=== PATIENT | male | born 1950 | race Caucasian/White ===

== ENCOUNTER 2017-01-15 15:36 | Inpatient (IN) | payer OTHER ==
[~2017-01-15] VITALS: Ht 165.1 cm; Wt 55.3 kg
[~2017-01-15 15:36] MED LIST: ASPI-1093 PO; DONE5TAB2 PO; FOLI1TAB19 PO; GLIP10TA3 PO; METF500T PO; THIA100T25 PO
--- NOTE | 2017-01-15 15:47 | NUR ---
66/M BIBA FROM SNF FOR EVALUATION OF ELEVATED BLOOD SUGAR. BLOOD SUGAR UPON ARRIVAL TO ER READS "HIGH". HX DM, ANEMIA, HTN, ALZHEIMERS.PATIENT PRESENTS TO ED WITH ALOC . NO N/V/D NOTED AT THIS TIME. ; SKIN IS PINK/WARM/DRY;LUNGS CLEAR BL; HR EVEN AND REGULAR.
[2017-01-15 15:52] VITALS: BP 148/68
[2017-01-15] MEDS ORDERED: NACL 0.9% 1,000 ML IV SCH ×2 (15:58→19:40)
[2017-01-15 16:18] LABS: BASOPHILS # (AUTO) 0.1 K/uL (0.00-0.22); BASOPHILS % (AUTO) 0.8 % (0.0-2.0); EOSINOPHILS # (AUTO) 0.1 K/uL (0-0.4); HEMATOCRIT 40.8 % (36-52); HEMOGLOBIN 13.2 g/dL (12.0-18.0); LYMPHOCYTES % (AUTO) 12.5 % (20.5-51.1); MEAN CORPUSCULAR HEMOGLOBIN 30 pg (27-31); MEAN CORPUSCULAR HGB CONC 32 g/dL (33-37); MEAN CORPUSCULAR VOLUME 93 fL (80-94); MONOCYTES # (AUTO) 0.6 K/uL (0.8-1.0); MONOCYTES % (AUTO) 7.2 % (1.7-9.3); NEUTROPHILS # (AUTO) 6.3 K/uL (1.8-7.7); NEUTROPHILS % (AUTO) 78.5 % (42.2-75.2); PLATELET COUNT (AUTO) 184 K/uL (140-450); RED BLOOD CELL COUNT(AUTO) 4.39 MIL/uL (4.20-6.10); WHITE BLOOD COUNT (AUTO) 8.1 K/uL (4.8-10.8)
[2017-01-15 16:34] LABS: INR 1.1 (0.8-1.2); PARTIAL THROMBOPLASTIN TIME 22.9 secs (22-35.6); PROTHROMBIN TIME 10.3 secs (10.8-13.4)
[2017-01-15 16:36] LABS: ALBUMIN 3.3 g/dL (3.4-5.0); ANION GAP 15.5 (8-16); CALCIUM 9.2 mg/dL (8.5-10.1); CARBON DIOXIDE 28.8 mmol/L (21-32); CREATININE 3.5 mg/dL (0.6-1.3); POTASSIUM 5.3 mmol/L (3.5-5.1); TOTAL BILIRUBIN 0.3 mg/dL (0.0-1.0); TOTAL PROTEIN, SERUM 7.4 g/dL (6.4-8.2)
--- NOTE | 2017-01-15 16:57 | NUR ---
PT'S OPEN EYES BUT NON VERBAL ,CAN MOVE BOTH HANDS
[2017-01-15 17:02] LABS: LACTIC ACID 2.1 mmol/L (0.4-2.0)
[2017-01-15 17:07] LABS: APPEARANCE,URINE CLEAR (CLEAR); BILIRUBIN,URINE NEGATIVE (NEGATIVE); BLOOD, URINE NEGATIVE (NEGATIVE); COLOR,URINE YELLOW (YELLOW); LEUKOCYTE ESTERASE ,URINE NEGATIVE (NEGATIVE); NITRITE, URINE NEGATIVE (NEGATIVE); PROTEIN,URINE 2+ (NEGATIVE); UGLUCOSE 3+ (NEGATIVE); UROBILINOGEN,URINE 0.2 EU/dL (0.2 - 1)
[2017-01-15] MEDS ORDERED: NACL 0.9% 1,000 ML IV ONE ×2 (17:10→18:00)
[2017-01-15] MEDS ORDERED: INSULIN HUMAN REGULAR 100 UNITS in NACL 0.9% 100 ML IV ONE (17:10)
[2017-01-15 17:11] LABS: RBC,URINE 0-3 /HPF (0-5); WBC,URINE 0-3 /HPF (0-5)
[2017-01-15 17:12] LABS: BLOOD GAS BASE EXCESS -1.6 mmol/L (-2.0-2.0); BLOOD GAS HCO3 24.5 mmol/L; BLOOD GAS PCO2 46.8 mmHg (20-50); BLOOD GAS PH 7.336 (7.35-7.45); BLOOD GAS PO2 147.9 mmHg
[2017-01-15 17:12] LABS: BACTERIA,URINE FEW /HPF (None Seen); HYALINE CASTS, URINE 0-10 /LPF (None Seen); SQUAMOUS EPITHELIAL CELL,UR 0-3 /LPF (0-3 (FEW)); URINE AMORPHOUS URATE 1+ /HPF (None Seen)
[2017-01-15 17:13] LABS: BLOOD GAS O2 SAT% 98.4 % (92.0-98.5)
[2017-01-15] MEDS ORDERED: MORPHINE SULFATE 2 MG/ML SYR IVP PRN (17:55)
[2017-01-15] MEDS ORDERED: ONDANSETRON 4 MG/2 ML VIAL IVP PRN (17:55)
[2017-01-15] MEDS ORDERED: ACETAMINOPHEN 325 MG TAB PO PRN (17:55)
[2017-01-15] MEDS ORDERED: DOCUSATE SODIUM 100 MG GELCAP PO PRN (17:55)
[2017-01-15] MEDS ORDERED: HYDROcodone/APAP 5/325 MG 1 TAB TAB PO PRN (17:55)
--- NOTE | 2017-01-15 17:58 | NUR ---
CALLED IRENE OLMOS ICU TO REPORT PT ICU 3 .WILL CALL BACK IN 5 MINS
[2017-01-15] MEDS ORDERED: INSULIN HUMAN REGULAR 100 UNITS in NACL 0.9% 100 ML IV SCH (18:00)
[2017-01-15] MEDS ORDERED: DEXT 5% / NACL 0.45% 1,000 ML IV PRN (18:00)
[2017-01-15] MEDS ORDERED: DEXTROSE 50% 50 ML SYR IVP PRN (18:00)
--- NOTE | 2017-01-15 18:25 | NUR ---
GAVE REPORT TO IRENE OLMOS
--- NOTE | 2017-01-15 18:26 | NUR ---
Patient will be admitted to care of [facility]. Admited to ICU. Will go to room 3. Belongings list completed. Report to IRENE OLMOS.
[2017-01-15 18:50] VITALS: BP 167/95
--- NOTE | 2017-01-15 18:50 | NUR ---
RECEIVE PATIENT FROM ER. VITAL SIGNS TAKEN. MRSA NARES SWAB IS SEND TO LAB. HOB ELEVATED. UPDATED OF PLAN OF CARE. WILL CONTINUE TO MONITOR.
--- NOTE | 2017-01-15 18:57 | NUR ---
INSULIN DRIP INCREASE TO 7 UNITS/HR PER DR ACEVEDO'S ORDER. INSERTED A NEW IV CATH ON RIGHT HAND USING GAUGE 20 NEEDLE WITH GOOD BLOOD RETURN. TEGADERM DRESSING IS THEN PLACED. TOLERATED THE PROCEDURE WELL.
[2017-01-15 19:13] LABS: CHOL/HDL RATIO 3.3 (1-4.5); MAGNESIUM 3.3 mg/dL (1.8-2.4); PHOSPHORUS 5.8 mg/dL (2.5-4.9)
--- NOTE | 2017-01-15 19:15 | NUR ---
REPORT GIVEN TO INCOMING HVAC SERVICE TECHNICIAN RN, IRENE LEE.
[2017-01-15 19:22] LABS: BILIRUBIN,DIRECT 0.1 mg/dL (0.0-0.3)
--- NOTE | 2017-01-15 19:25 | NUR ---
RECEIVED REPORT FROM AMARILIS/RN, PATIENT ADMITTED FROM ER AT 1850 FOR DKA. PATIENT'S DAUGHTER AT BEDSIDE AND TALKING WITH DR. MILLER BUT LEFT RIGHT AWAY. PATIENT IS AWAKE, ORIENTED TO NAME ONLY, ON INSULIN DRIP AT 7 UNITS/HR INFUSING TO LEFT HAND G#20, SALINE LOCK ON RIGHT HAND G#20 , HAS MEADE CATH AND DRAINING CLEAR YELLOW URINE, SKIN IS INTACT, MOVES ALL EXTREMITIES, ON NPO AT THIS TIME, DENIES PAIN.
[2017-01-15] MEDS: BLOOD GLUCOSE MONITORING 1 DEV DEV FS SCH ×5 (19:30→23:00)
[2017-01-15 19:43] LABS: FREE T4 (FREE THYROXINE) 0.94 ng/dL (0.76-1.46); THYROID STIMULATING HORMONE 1.96 uIU/mL (0.34-3.76)
[2017-01-15 20:00] VITALS: BP 155/95
[2017-01-15 20:15] LABS: ANION GAP 12.5 (8-16); CALCIUM 8.3 mg/dL (8.5-10.1); CARBON DIOXIDE 29.8 mmol/L (21-32); CREATININE 3.1 mg/dL (0.6-1.3); POTASSIUM 4.3 mmol/L (3.5-5.1)
[2017-01-15] MEDS ORDERED: MAG SULF 2000 MG/WATER PREMIX 50 ML IV SCH (20:15)
[2017-01-15 20:17] LABS: MAGNESIUM 3.1 mg/dL (1.8-2.4); PHOSPHORUS 4.6 mg/dL (2.5-4.9)
--- NOTE | 2017-01-15 20:30 | NUR ---
DR MILLER NOTIFIED LAB RESULT SEE CRITICAL LAB RECORD ,ORDER CHANGE IV ,SEE ORDER
[2017-01-15] MEDS: NACL 0.45% 1,000 ML IV SCH (20:41)
[2017-01-15] MEDS ORDERED: cefTRIAXone 1,000 MG VIAL ONE (20:44)
--- NOTE | 2017-01-15 20:44 | NUR ---
SPOKE WITH DR. MILLER REGARDING MG RIDER, INFORMED MD THAT PATIENT'S CURRENT MG LEVEL IS 3.1, PER MD TO HOLD MG RIDER ORDERED.
[2017-01-15 22:00] VITALS: BP 154/94
--- NOTE | 2017-01-15 22:00 | NUR ---
CONTINUE TO MONITOR BLOOD SUGAR, PATIENT IS RESTING, DENIES PAIN.
[2017-01-16] VITALS (11 sets, daily range): BP systolic 121–178; BP diastolic 63–132
--- NOTE | 2017-01-16 | NUR ---
AWAKE, DENIES PAIN, ACCUCHECK Q1H CONTINUE, REGULAR INSULIN DRIP NOW AT 1 UNIT/HR.
[2017-01-16] MEDS: BLOOD GLUCOSE MONITORING 1 DEV DEV FS SCH ×10 (00:06→21:14)
[2017-01-16 00:28] LABS: ANION GAP 12.2 (8-16); CALCIUM 8.2 mg/dL (8.5-10.1); CARBON DIOXIDE 28.5 mmol/L (21-32); CREATININE 2.6 mg/dL (0.6-1.3); MAGNESIUM 2.9 mg/dL (1.8-2.4); PHOSPHORUS 4.2 mg/dL (2.5-4.9); POTASSIUM 3.7 mmol/L (3.5-5.1)
[2017-01-16] MEDS: NACL 0.45% 1,000 ML IV SCH ×5 (00:30→20:36)
[2017-01-16] MEDS: DEXT 5% / NACL 0.45% 1,000 ML IV PRN ×2 (02:00→06:56)
--- NOTE | 2017-01-16 02:00 | NUR ---
PATIENT SLEEPING, EASILY AROUSED, REGULAR INSULIN DRIP INCREASED TO TO 2 UNITS, BS 217.
--- NOTE | 2017-01-16 04:00 | NUR ---
TURNED AND REPOSITIONED. DENIES PAIN, KEPT COMFORTABLE.
[2017-01-16 05:47] LABS: BASOPHILS # (AUTO) 0.2 K/uL (0.00-0.22); BASOPHILS % (AUTO) 1.9 % (0.0-2.0); EOSINOPHILS # (AUTO) 0.2 K/uL (0-0.4); EOSINOPHILS % (AUTO) 2.6 % (0.0-4.0); HEMATOCRIT 32.8 % (36-52); HEMOGLOBIN 10.4 g/dL (12.0-18.0); LYMPHOCYTES # (AUTO) 1.8 K/uL (2.0-11.5); LYMPHOCYTES % (AUTO) 19.4 % (20.5-51.1); MEAN CORPUSCULAR HEMOGLOBIN 29 pg (27-31); MEAN CORPUSCULAR HGB CONC 32 g/dL (33-37); MEAN CORPUSCULAR VOLUME 92 fL (80-94); MONOCYTES # (AUTO) 0.8 K/uL (0.8-1.0); MONOCYTES % (AUTO) 8.2 % (1.7-9.3); NEUTROPHILS # (AUTO) 6.3 K/uL (1.8-7.7); NEUTROPHILS % (AUTO) 67.9 % (42.2-75.2); PLATELET COUNT (AUTO) 146 K/uL (140-450); RED BLOOD CELL COUNT(AUTO) 3.57 MIL/uL (4.20-6.10); RED CELL DISTRIBUTION WIDTH 15.8 % (11.6-13.7); WHITE BLOOD COUNT (AUTO) 9.3 K/uL (4.8-10.8)
--- NOTE | 2017-01-16 06:00 | NUR ---
AM CARE PROVIDED, PATIENT HAD ANOTHER STOOL, WASHED AND CLEANED. BLOOD SUGAR CHECK CONTINUE Q1H, REGULAR INSULIN DRIP AT 1 UNIT/HR AT THIS TIME. HYDRALAZINE 10 MG IVP GIVEN FOR BP 178/90, DENIES PAIN.
[2017-01-16] MEDS: hydrALAZINE 20 MG/ML VIAL IVP PRN ×7 (06:10→17:15)
[2017-01-16 06:29] LABS: ANION GAP 9.7 (8-16); CALCIUM 7.8 mg/dL (8.5-10.1); CARBON DIOXIDE 28.1 mmol/L (21-32); POTASSIUM 3.8 mmol/L (3.5-5.1)
[2017-01-16 06:30] LABS: CREATININE 2.3 mg/dL (0.6-1.3)
[2017-01-16 06:32] LABS: MAGNESIUM 2.7 mg/dL (1.8-2.4); PHOSPHORUS 4.2 mg/dL (2.5-4.9)
--- NOTE | 2017-01-16 07:04 | NUR ---
DR. MOON CALLED AND INFORMED ABOUT PATIENT'S ELEVATED SODIUM LEVELS AND BUN, UPDATE PHYSICIAN THAT IVF IS D5 1/2 NS AT 250 ML/HR, REGULAR INSULIN DRIP AT 1 UNIT/HR, 0700 BS 194.
[2017-01-16 07:07] LABS: BLOOD GAS BASE EXCESS -2.2 mmol/L (-2.0-2.0); BLOOD GAS HCO3 22.4 mmol/L; BLOOD GAS PH 7.389 (7.35-7.45); BLOOD GAS PO2 108.3 mmHg
[2017-01-16 07:08] LABS: BLOOD GAS O2 SAT% 97.4 % (92.0-98.5)
[2017-01-16] MEDS ORDERED: DEXT 5% / NACL 0.45% 1,000 ML IV SCH (07:10)
--- NOTE | 2017-01-16 07:58 | NUR ---
PATIENT HAS BEEN SCREENED AND CATEGORIZED HIGH NUTRITION RISK. PATIENT WILL BE SEEN WITHIN 1-2 DAYS OF ADMISSION. 01/16/17-01/17/[address]
--- NOTE | 2017-01-16 08:00 | NUR ---
BLOOD GLUCOSE 219 DR. SCHULTE AWARE REG INSULIN COVER GIVEN ORDERED. INSULIN IVDRIP AT 1UNIT/HR CONTINUE FOR ONE MORE HOUR.
[2017-01-16 08:18] LABS: ANION GAP 11.2 (8-16); CALCIUM 7.8 mg/dL (8.5-10.1); CARBON DIOXIDE 26.3 mmol/L (21-32); CREATININE 2.1 mg/dL (0.6-1.3); POTASSIUM 3.5 mmol/L (3.5-5.1)
[2017-01-16 08:21] LABS: MAGNESIUM 2.4 mg/dL (1.8-2.4); PHOSPHORUS 3.7 mg/dL (2.5-4.9)
[2017-01-16] MEDS: INSULIN LISPRO SLIDING SCALE 100 UNITS/ML VIAL SUBQ PRN ×2 (08:24→21:15)
[2017-01-16] MEDS: DONEPEZIL 10 MG TAB PO SCH (08:25)
[2017-01-16] MEDS: ECOTRIN 81 MG TABEC PO SCH (08:25)
[2017-01-16] MEDS: THIAMINE 100 MG TAB PO SCH (08:26)
[2017-01-16] MEDS: FOLIC ACID 1 MG TAB PO SCH (08:26)
[2017-01-16] MEDS: PANTOPRAZOLE 40 MG INJ VIAL IVP SCH (09:00)
[2017-01-16] MEDS ORDERED: PANTOPRAZOLE 40 MG TABEC PO SCH (09:00)
--- NOTE | 2017-01-16 09:10 | NUR ---
INSULIN IV DRIP D/C ORDER.
--- NOTE | 2017-01-16 10:00 | NUR ---
blood glucose 131 NO INSULIN NEEDED.
[2017-01-16] MEDS ORDERED: BLOOD GLUCOSE MONITORING 1 DEV DEV FS SCH (12:00)
--- NOTE | 2017-01-16 12:00 | NUR ---
BL GLUCOSE ACC CHECK 75. CRANBERY JUICE AND APPLE SOURCE GIVEN.
[2017-01-16] MEDS ORDERED: ARTIFICIAL TEARS OPHTH OINT 3.5 GM TUBE OP PRN (12:45)
[2017-01-16] MEDS: MULTIVITAMIN/MINERALS 1 TAB PO SCH (12:45)
[2017-01-16] MEDS ORDERED: ATORVASTATIN 80 MG TAB PO SCH (12:54)
[2017-01-16] MEDS ORDERED: NIFEdipine 60 MG TABER PO SCH ×2 (12:56→12:59)
[2017-01-16] MEDS ORDERED: CLOPIDOGREL 75 MG TAB PO SCH (12:58)
[2017-01-16 13:20] LABS: ANION GAP 10.9 (8-16); CALCIUM 7.7 mg/dL (8.5-10.1); CARBON DIOXIDE 25.6 mmol/L (21-32); CREATININE 1.9 mg/dL (0.6-1.3); POTASSIUM 3.5 mmol/L (3.5-5.1)
--- NOTE | 2017-01-16 14:20 | NUR ---
visit by family at bedside.
--- NOTE | 2017-01-16 14:22 | NUR ---
01/16/17 RD INITIAL ASSESSMENT COMPLETED PLEASE REFER TO NUTRITION ASSESSMENT UNDER CARE ACTIVITY FOR ESTIMATED NUTRITIONAL NEEDS. RD RECOMMENDATIONS: 1. WHEN MEDICALLY APPROPRIATE CONSIDER ADVANCE DIET TOLERATED TO [facility] 60 WITH TEXTURE MODIFICATION NEEDED. 2. MONITOR PROTEIN CONSUMPTION D/T HX OF CKD. 3. RD WILL F/U 3-5 DAYS; MODERATE RISK. GERARD VERDIN, RD
--- NOTE | 2017-01-16 16:00 | NUR ---
BL GLUCOSE 194 INSULIN COVERAGE GIVEN ORDERED.
--- NOTE | 2017-01-16 16:30 | NUR ---
CALL TELE GIVE REPORT TO JAYSHREE BNOILLA.
--- NOTE | 2017-01-16 16:55 | NUR ---
transfer to 110 b in bed CONDITION STABLE DURING TRANSFER REPORT GIVE TO JAYSHREE AT BEDSIDE.
--- NOTE | 2017-01-16 17:00 | NUR ---
RECEIVED PATIENT FROM ICU FOR CONTINUITY OF CARE. PATIENT AWAKE , A/OX2 SWEDISH SPEAKING , NO S/S OF RESP DISTRESS NOTED . DENIES ANY PAIN . IV SITE LEFT ARM G 20 INTACT AND PATENT. IVF INFUSING WELL. F/C DRAIN CLEAR YELLOW URINE. PLAN OF CARE DISCUSSED WITH THE PATIENT VITALS STABLE WILL CONTINUE TO MONITOR.
[2017-01-16] MEDS: POLYVINYL ALCOHOL 1.4% OP 15 ML SOL OP SCH ×2 (17:25→20:39)
--- NOTE | 2017-01-16 19:20 | NUR ---
RECEIVED REPORT FROM IRENE POLO AT BEDSIDE. INITIAL ASSESSMENT COMPLETED. PT AAOX3 FORGETFUL AT TIMES. PT'S SKIN IS INTACT. PT HAS IV TO LEFT ARM G 20; ASYMPTOMATIC, PATENT AND INTACT INFUSING FLUIDS WELL. PT ON ROOM AIR. ORIENTED PT TO ROOM AND SURROUNDINGS AND USE OF CALL LIGHT. EXPLAINED PLAN OF CARE TO PT. SAFETY/FALL RISK MEASURES IN PLACE, BED ALARM ON. WILL CONTINUE TO MONITOR PT. Addendum: 01/16/17 at 2006 by Kady Sheridan RN PT HAS A MEADE CATHETER IN PLACE.
--- NOTE | 2017-01-16 19:45 | NUR ---
PROFESSOR OF GENETICS AT BEDSIDE, WILL CONTINUE TO MONITOR PT.
[2017-01-16] MEDS ORDERED: cefTRIAXone 1,000 MG VIAL ONE (20:36)
[2017-01-16] MEDS: levETIRAcetam 500 MG TAB PO SCH (20:36)
[2017-01-16] MEDS: ASCORBIC ACID 500 MG TAB PO SCH (20:36)
[2017-01-16] MEDS: DOCUSATE SODIUM 100 MG GELCAP PO SCH (20:36)
--- NOTE | 2017-01-16 20:40 | NUR ---
ARTIFICIAL TEARS NOT GIVEN; MEDICATION NOT AVAILABLE.
[2017-01-16] MEDS ORDERED: SIMVASTATIN 20 MG TAB PO SCH (21:00)
[2017-01-16] MEDS ORDERED: INSULIN DETEMIR 100 UNITS/ML 10 ML VIAL SUBQ SCH (21:00)
--- NOTE | 2017-01-16 21:19 | NUR ---
PT TOLERATED 2100 MEDS WELL. [place] CD REACTOR OPERATOR HEAD AT BEDSIDE VISITING. WILL CONTINUE TO MONITOR PT.
--- NOTE | 2017-01-16 23:05 | NUR ---
PT TRYING TO GET OUT OF BED, CONFUSED AT TIMES. PT BACK IN BED. BED ALARM ON, WILL CONTINUE TO MONITOR PT.
[2017-01-17] VITALS: BP 134/81
--- NOTE | 2017-01-17 01:20 | NUR ---
PT AWAKE, TRYING TO REMOVE IV. PT BACK IN BED, BED ALARM ON. WILL CONTINUE TO MONITOR PT.
--- NOTE | 2017-01-17 02:55 | NUR ---
PT AWAKE, PT TRYING TO REMOVE IV AND GET OUT OF BED. HELPED PT BACK TO BED. BED ALARM ON. WILL CONTINUE TO MONITOR PT.
[2017-01-17 04:00] VITALS: BP 123/72
--- NOTE | 2017-01-17 04:55 | NUR ---
PT SLEEPING AT THIS TIME, NO SIGNS OF DISTRESS NOTED. BED ALARM ON.
--- NOTE | 2017-01-17 06:10 | NUR ---
CHECKED PT'S BLOOD SUGAR IS 57. PT ASYMPTOMATIC, TALKING. ORANGE JUICE GIVEN AND WILL GIVE D50 ORDERED.
[2017-01-17] MEDS: NACL 0.45% 1,000 ML IV SCH ×2 (06:15→18:20)
--- NOTE | 2017-01-17 06:33 | NUR ---
RECHECKED PT'S BLOOD SUGAR AND IT IS NOW 152. PT STABLE, WILL CONTINUE TO MONITOR PT.
[2017-01-17] MEDS: BLOOD GLUCOSE MONITORING 1 DEV DEV FS SCH ×4 (06:34→21:06)
[2017-01-17 06:52] LABS: BASOPHILS % (AUTO) 0.2 % (0.0-2.0); EOSINOPHILS # (AUTO) 0.1 K/uL (0-0.4); EOSINOPHILS % (AUTO) 0.9 % (0.0-4.0); HEMATOCRIT 29.8 % (36-52); HEMOGLOBIN 9.6 g/dL (12.0-18.0); LYMPHOCYTES # (AUTO) 1.5 K/uL (2.0-11.5); LYMPHOCYTES % (AUTO) 11.7 % (20.5-51.1); MEAN CORPUSCULAR HEMOGLOBIN 29 pg (27-31); MEAN CORPUSCULAR HGB CONC 32 g/dL (33-37); MEAN CORPUSCULAR VOLUME 91 fL (80-94); MONOCYTES # (AUTO) 0.7 K/uL (0.8-1.0); MONOCYTES % (AUTO) 5.5 % (1.7-9.3); NEUTROPHILS # (AUTO) 10.6 K/uL (1.8-7.7); NEUTROPHILS % (AUTO) 81.7 % (42.2-75.2); PLATELET COUNT (AUTO) 135 K/uL (140-450); RED BLOOD CELL COUNT(AUTO) 3.27 MIL/uL (4.20-6.10); RED CELL DISTRIBUTION WIDTH 15.7 % (11.6-13.7); WHITE BLOOD COUNT (AUTO) 12.9 K/uL (4.8-10.8)
[2017-01-17 07:13] LABS: ANION GAP 9.8 (8-16); CALCIUM 7.5 mg/dL (8.5-10.1); CARBON DIOXIDE 26.3 mmol/L (21-32); CREATININE 1.6 mg/dL (0.6-1.3); POTASSIUM 3.1 mmol/L (3.5-5.1)
--- NOTE | 2017-01-17 07:20 | NUR ---
ENDORSED PLAN OF CARE TO IRENE CONTRERAS/FRENCH FOR CONTINUITY OF CARE. PT IN STABLE CONDITION.
--- NOTE | 2017-01-17 07:30 | NUR ---
RECEIVED PT RESTING COMFORTABLY IN BED, AAOX1, REORIENTED PT TO TIME/DATE AND PLACE; RESPIRATIONS EVEN AND UNLABORED ON ROOM AIR; NO C/O DISTRESS, SOB OR CP AT THIS TIME. IVF INFUSING WELL TO LEFT HAND, SITE ASYMPTOMATIC. REPOSITIONING PER PROTOCOL. ROUTINE/PLAN OF CARE DISCUSSED AND REVIEWED, WILL REINFORCE TEACHING THROUGHOUT SHIFT. SAFETY PRECAUTIONS OBSERVED AND MAINTAINED. WILL CONTINUE TO MONITOR PT.
[2017-01-17 08:00] VITALS: BP 101/54
[2017-01-17 08:22] LABS: HEPATITIS A ANTIBODY IGM Negative (Negative); HEPATITIS B CORE AB TOTAL Negative (Negative); HEPATITIS B CORE, IGM Negative (Negative); HEPATITIS B SURFACE AB Non Reactive (.); HEPATITIS B SURFACE ANTIGEN Negative (Negative); HEPATITIS C VIRUS ANTIBODY 0.1 s/co ratio (0.0-0.9)
[2017-01-17] MEDS ORDERED: ATORVASTATIN 80 MG TAB PO SCH (09:00)
[2017-01-17] MEDS: NIFEdipine 60 MG TABER PO SCH (09:00)
--- NOTE | 2017-01-17 09:17 | NUR ---
SS NOTE: PER IRENE KEBEDE FROM [facility], PT DOES NOT MEET CRITERIA FOR HOSPICE AT THIS TIME SINCE HIS CONDITION HAS IMPROVED.
[2017-01-17] MEDS: THIAMINE 100 MG TAB PO SCH (09:54)
[2017-01-17] MEDS: MULTIVITAMIN/MINERALS 1 TAB PO SCH (09:54)
[2017-01-17] MEDS: ASCORBIC ACID 500 MG TAB PO SCH ×2 (09:54→21:07)
[2017-01-17] MEDS: levETIRAcetam 500 MG TAB PO SCH ×2 (09:54→21:07)
[2017-01-17] MEDS: DOCUSATE SODIUM 100 MG GELCAP PO SCH ×2 (09:54→21:07)
[2017-01-17] MEDS: DONEPEZIL 10 MG TAB PO SCH (09:54)
[2017-01-17] MEDS: ECOTRIN 81 MG TABEC PO SCH (09:55)
[2017-01-17] MEDS: CLOPIDOGREL 75 MG TAB PO SCH (09:55)
[2017-01-17] MEDS: FOLIC ACID 1 MG TAB PO SCH (09:55)
[2017-01-17] MEDS: PANTOPRAZOLE 40 MG INJ VIAL IVP SCH (09:56)
[2017-01-17] MEDS: POLYVINYL ALCOHOL 1.4% OP 15 ML SOL OP SCH ×4 (09:56→21:06)
[2017-01-17] MEDS: INSULIN DETEMIR 100 UNITS/ML 10 ML VIAL SUBQ SCH (10:00)
[2017-01-17] MEDS ORDERED: POTASSIUM CHLORIDE 40 MEQ, LIDOCAINE 1% 25 MG in NACL 0.9% 250 ML IV SCH (10:00)
--- NOTE | 2017-01-17 10:20 | NUR ---
VS NOTED, NIFEDIPINE HELD FOR LOW BP 101/54, NOTIFIED MD; ADMINISTERED REMAINING ROUTINE MEDS ORDERED, PT TOLERATED WELL. ASSISTED WITH AM CARE. WILL CONTINUE TO MONITOR PT.
[2017-01-17] MEDS: INSULIN LISPRO SLIDING SCALE 100 UNITS/ML VIAL SUBQ PRN (11:32)
[2017-01-17 12:00] VITALS: BP 129/72
[2017-01-17 15:55] LABS: HEPATITIS A ANTIBODY TOTAL Positive (Negative)
[2017-01-17 16:00] VITALS: BP 93/52
--- NOTE | 2017-01-17 16:45 | NUR ---
SWALLOW EVAL DONE AT BEDSIDE. CONDITION STABLE.
--- NOTE | 2017-01-17 16:51 | NUR ---
* ST NOTE * Bedside Dysphagia and Oral Mechanism exams completed at pt's bedside with pt's sister and nursing present. Pt consenting to evaluation with pt's sister present. See evaluation report for further details. Pt tolerating 2/2 alternating PO trials of regular solid saltine crackers w/out s/s of aspiration but exhibiting minimal to occasional residue in oral cavity after PO intake of consistency. Pt also tolerating 6/7 successive sips of thin liquid apple juice via a straw w/out s/s of aspiration, but coughing on last trial of consistency. Pt presenting as impulsive, sipping successive sips of thin liquids via a straw, thus coughing on consistency after last trial when not abiding by aspiration precautions. Because pt is impulsive and because pt exhibiting minimal residue in oral cavity after PO intake of solids, it is recommended pt's PO diet consistency be modified to Mechanical soft-ground textures with finely chopped vegetables with thin liquids, requiring close supervision by staff/caregivers during PO intake to assure strict aspiration precautions are in place secondary to pt's impulsivity when self-feeding. Pt, caregiver/sister and caregiver/Nursing education completed regarding results of evaluation; benefits of abiding by aspiration precautions and recommended PO diet consistency; and prognosis for improvement; with pt, caregiver/sister and caregiver/nursing agreeable with and verbalizing understanding of clinician's recommendations. Recommend: - PO diet consistency of Mechanical soft-ground textures with finely chopped vegetables with thin liquids for all meals - Close supervision during PO intake to assure strict aspiration precautions are in place - Pt requires total assistance with feeding No further ST follow up recommended at this time. G8996 CK G8997 CJ G8998 CJ NOMS Level 3 Time In/Out: 16:30 - 17:00
--- NOTE | 2017-01-17 19:25 | NUR ---
CONDITION STABLE, ENDORSED PLAN OF CARE TO CURED MEATS SUPERVISOR.
--- NOTE | 2017-01-17 19:30 | NUR ---
RECEIVED PT IN STABLE CONDITION FORM AM NURSE. AWAKE BUT CONFUSED. JUST PULLED OUT IV ACCESS ON THE LT HAND. BUT NEW IV STARTED BY AM NURSE ON THE LT FA #22. IVF INFUSING WELL .TRYING TO GET OUT OF BED, RESTLESS . HAD BM , CLEANED AND KEPT DRY. REPOSITION FOR COMFORT. ON TELE MONITOR. WITH MEADE CATHETER TO GRAVITY. BEDREST. FREQUENT ROUNDS NEEDED . SIDE RAILS UPX2. CALL LIGHT PLACED WITHIN EASY REACH. WILL CONTINUE TO MONITOR.
[2017-01-17 20:00] VITALS: BP 111/60
--- NOTE | 2017-01-17 21:06 | NUR ---
BLOOD SUGAR WAS CHECKED RESULT 136. PROVIDED SOME SNACK, APPLE SAUCE WITH PO MEDS. TOLERATED WELL. WILL CONTINUE TO MONITOR.
--- NOTE | 2017-01-17 22:30 | NUR ---
SLEEPING WELL. NO S/S OF ANY DISCOMFORT NOR DISTRESS NOTED.
[2017-01-18 00:10] VITALS: BP 128/68
--- NOTE | 2017-01-18 01:40 | NUR ---
HR ON MONITOR SUDDEN LOW 46, BUT BACK UP QUICKLY. STILL CHECKED ON PT. AWAKE, NO DISTRESS NOTED. VITAL SIGNS TAKEN T-99.1,BP-127/54,HR-63,R-18, O2 SAT ON ROOM AIR 98%. WILL CONTINUE TO MONITOR.
[2017-01-18 01:45] LABS: AMPHETAMINE, URINE NEG. ng/ml (NEG <=1000); BARBITURATE, URINE NEG. ng/ml (NEG <=200); BENZODIAZEPINE, URINE NEG. ng/mL (NEG <=200); CANNABINOID, URINE NEG. ng/mL (NEG <=50); COCAINE, URINE NEG. ng/mL (NEG <=300); OPIATE, URINE NEG. ng/mL (NEG <=2000); PHENCYCLIDINE SCREEN,URINE NEG. ng/mL (NEG <=25)
[2017-01-18] MEDS: NACL 0.45% 1,000 ML IV SCH ×3 (02:11→15:51)
--- NOTE | 2017-01-18 02:30 | NUR ---
SLEEPING WELL AT THIS TIME. NO S/S OF ANY DISCOMFORT NOR DISTRESS NOTED.
[2017-01-18 04:00] VITALS: BP 124/65
[2017-01-18] MEDS: BLOOD GLUCOSE MONITORING 1 DEV DEV FS SCH ×4 (06:20→21:05)
--- NOTE | 2017-01-18 06:20 | NUR ---
BLOOD SUGAR WAS CHECKED RESULT 76. GAVE APPLE SAUCE .TOLERATED WELL
[2017-01-18 06:40] LABS: BASOPHILS # (AUTO) 0.1 K/uL (0.00-0.22); BASOPHILS % (AUTO) 1.5 % (0.0-2.0); EOSINOPHILS # (AUTO) 0.2 K/uL (0-0.4); EOSINOPHILS % (AUTO) 3.7 % (0.0-4.0); HEMATOCRIT 26.7 % (36-52); HEMOGLOBIN 8.8 g/dL (12.0-18.0); LYMPHOCYTES # (AUTO) 1.8 K/uL (2.0-11.5); LYMPHOCYTES % (AUTO) 26.1 % (20.5-51.1); MEAN CORPUSCULAR HEMOGLOBIN 30 pg (27-31); MEAN CORPUSCULAR HGB CONC 33 g/dL (33-37); MEAN CORPUSCULAR VOLUME 91 fL (80-94); MONOCYTES # (AUTO) 0.6 K/uL (0.8-1.0); MONOCYTES % (AUTO) 9.2 % (1.7-9.3); NEUTROPHILS # (AUTO) 4.1 K/uL (1.8-7.7); NEUTROPHILS % (AUTO) 59.5 % (42.2-75.2); PLATELET COUNT (AUTO) 101 K/uL (140-450); RED BLOOD CELL COUNT(AUTO) 2.95 MIL/uL (4.20-6.10); RED CELL DISTRIBUTION WIDTH 15.8 % (11.6-13.7); WHITE BLOOD COUNT (AUTO) 6.8 K/uL (4.8-10.8)
[2017-01-18 07:01] LABS: ANION GAP 10.4 (8-16); CALCIUM 7.2 mg/dL (8.5-10.1); CARBON DIOXIDE 23.2 mmol/L (21-32); CREATININE 1.5 mg/dL (0.6-1.3); MAGNESIUM 1.8 mg/dL (1.8-2.4); PHOSPHORUS 3.2 mg/dL (2.5-4.9); POTASSIUM 3.6 mmol/L (3.5-5.1)
--- NOTE | 2017-01-18 07:10 | NUR ---
ENDORSED PT IN STABLE CONDITION TO AM NURSE.
[2017-01-18] MEDS ORDERED: FUROSEMIDE 40 MG/4 ML VIAL IVP SCH (07:27)
[2017-01-18] MEDS ORDERED: FUROSEMIDE 100 MG/10 ML VIAL IV SCH (07:27)
--- NOTE | 2017-01-18 07:30 | NUR ---
RECEIVED PT RESTING COMFORTABLY IN BED, AAOX1, REORIENTED PT TO TIME/DATE AND PLACE; RESPIRATIONS EVEN AND UNLABORED ON ROOM AIR; NO C/O DISTRESS, SOB OR CP AT THIS TIME. IVF INFUSING WELL TO LEFT FOREARM, SITE ASYMPTOMATIC. MEADE CATH PATENT, DRAINING BY GRAVITY, CLEAR YELLOW URINE NOTED. REPOSITIONING PER PROTOCOL. ROUTINE/PLAN OF CARE DISCUSSED AND REVIEWED, WILL REINFORCE TEACHING THROUGHOUT SHIFT. SAFETY PRECAUTIONS OBSERVED AND MAINTAINED. WILL CONTINUE TO MONITOR PT.
[2017-01-18 08:00] VITALS: BP 135/64
[2017-01-18] MEDS: CLOPIDOGREL 75 MG TAB PO SCH (09:00)
[2017-01-18] MEDS: DOCUSATE SODIUM 100 MG GELCAP PO SCH ×2 (09:01→21:30)
[2017-01-18] MEDS: FOLIC ACID 1 MG TAB PO SCH (09:02)
[2017-01-18] MEDS: THIAMINE 100 MG TAB PO SCH (09:02)
[2017-01-18] MEDS: MULTIVITAMIN/MINERALS 1 TAB PO SCH (09:02)
[2017-01-18] MEDS: ASCORBIC ACID 500 MG TAB PO SCH ×2 (09:03→21:31)
[2017-01-18] MEDS: DONEPEZIL 10 MG TAB PO SCH (09:04)
[2017-01-18] MEDS: ECOTRIN 81 MG TABEC PO SCH (09:04)
[2017-01-18] MEDS: levETIRAcetam 500 MG TAB PO SCH ×2 (09:05→21:30)
[2017-01-18] MEDS: NIFEdipine 60 MG TABER PO SCH (09:05)
[2017-01-18] MEDS: POLYVINYL ALCOHOL 1.4% OP 15 ML SOL OP SCH ×4 (09:07→21:29)
--- NOTE | 2017-01-18 09:10 | NUR ---
VSS, HEPARIN AND PLAVIX HELD, PLT LOW 101; ADMINISTERED REMAINING ROUTINE MEDS ORDERED, PT TOLERATED WELL. ASSISTED WITH AM CARE. WILL CONTINUE TO MONITOR PT.
[2017-01-18] MEDS: INSULIN DETEMIR 100 UNITS/ML 10 ML VIAL SUBQ SCH (09:23)
--- NOTE | 2017-01-18 11:00 | NUR ---
Social Service Note: I faxed patient's clinical information to [facility] (SNF) .
--- NOTE | 2017-01-18 11:08 | NUR ---
Social Service Note: Per Magdaleno from [facility] (SNF) , they do not have any Power of Icer Hand for Healthcare documents in patient's file, or advance directives. He stated patient's niece Emma Morfin is patient's healthcare decision maker and patient's caregiver is Robin Dowd.
[2017-01-18 12:00] VITALS: BP 119/54
[2017-01-18] MEDS: INSULIN LISPRO SLIDING SCALE 100 UNITS/ML VIAL SUBQ PRN ×2 (12:11→21:08)
--- NOTE | 2017-01-18 12:49 | NUR ---
SPOKE WITH MABLE FROM [facility]. THE AUTH FOR PREMIER ZUÑIGAPRASANTH IS [id number]. CHRIST BONILLASUPERVISORY CIVIL ENGINEER NURSE AWARE.
--- NOTE | 2017-01-18 13:56 | NUR ---
Social Service Note: Jaswant Anaya from [facility] (SNF) , patient may return to room 106B upon discharge, accepting physician , Trouble Clerk Karena guevara
--- NOTE | 2017-01-18 14:00 | NUR ---
PT RESTING COMFORTABLY. CONDITION REMAINS STABLE.
[2017-01-18 16:00] VITALS: BP 130/71
--- NOTE | 2017-01-18 16:30 | NUR ---
VSS. PT RESTING COMFORTABLY IN BED. PT CAREGIVER IN TO VISIT. PT REMAINS IN STABLE CONDITION.
--- NOTE | 2017-01-18 19:23 | NUR ---
ENDORSED PLAN OF CARE TO NIGHT NURSE. CONDITION STABLE.
--- NOTE | 2017-01-18 19:25 | NUR ---
RECEIVED PT FROM DAY SHIFT NURSE PT AOX1 FOLLOW COMMANDS, , ON TELEMETRY SR, IV ON LEFT ARM INFUSING WELL FOLEYCATH DRAINING WELL YELLOW URINE, PT REPOSITIONED , BED ALARM ON INITIAL ASSESSMENT DONE
[2017-01-18 20:00] VITALS: BP 115/59
--- NOTE | 2017-01-18 21:30 | NUR ---
BLOOD SUGAR TEST 244 WAS COVERAGE WITH 4 UNITS HUMALOG SUBQ.
--- NOTE | 2017-01-18 23:08 | NUR ---
PT REPOSITIONED , NOT DISTRESS NOTED ON TELEMETRY SR ,
[2017-01-19] VITALS: BP 110/61
--- NOTE | 2017-01-19 00:44 | NUR ---
PT SLEELPING AFTRER REPOSITIONED IV ON LEFT ARM INFUSING WELL, ON TELEMETRY SR
[2017-01-19 04:00] VITALS: BP 99/45
--- NOTE | 2017-01-19 04:00 | NUR ---
PT HAS BEEN REPOSITIONED Q2H ON TELEMETRY SR, IV ON LEFT ARM INFUSING WELL MEADE CATH DRAINING WELL YELLOW URINE, PT HAS BEEN MONITORING CLOSE
[2017-01-19] MEDS: BLOOD GLUCOSE MONITORING 1 DEV DEV FS SCH ×2 (06:33→11:52)
--- NOTE | 2017-01-19 06:33 | NUR ---
BLOOD SUGAR TEST 130 PT CONFUSED, NOT FEVER ON TELEMETRY SR IV ON LEFT ARM INFUSING WELL, MEADE CATH DRAINING WELL YELLOW URINE
--- NOTE | 2017-01-19 07:10 | NUR ---
ASSUMED CONTINUITY OF CARE. NO SIGNS AND SYMPTOMS OF ACUTE DISTRESS NOTED. INITIAL ASSESSMENT DONE. RE-ORIENTED TO EVENTS AND SURROUNDINGS. HOB ELEVATED. KEEP COMFORTABLE ON BED. FALL PRECAUTION APPLIED. CALL LIGHT WITHIN REACH.
[2017-01-19 08:00] VITALS: BP 139/73
--- NOTE | 2017-01-19 08:33 | NUR ---
Patient's Plan of Care was discussed and reviewed with OPERATIONS RESEARCH SCIENTIST: MILAGROS PEARCE
[2017-01-19] MEDS: CLOPIDOGREL 75 MG TAB PO SCH (08:53)
[2017-01-19] MEDS: levETIRAcetam 500 MG TAB PO SCH (08:54)
[2017-01-19] MEDS: DONEPEZIL 10 MG TAB PO SCH (08:54)
[2017-01-19] MEDS: DOCUSATE SODIUM 100 MG GELCAP PO SCH (08:54)
[2017-01-19] MEDS: FOLIC ACID 1 MG TAB PO SCH (08:54)
[2017-01-19] MEDS: NIFEdipine 60 MG TABER PO SCH (08:54)
[2017-01-19] MEDS: MULTIVITAMIN/MINERALS 1 TAB PO SCH (08:54)
[2017-01-19] MEDS: THIAMINE 100 MG TAB PO SCH (08:55)
[2017-01-19] MEDS: ECOTRIN 81 MG TABEC PO SCH (08:55)
[2017-01-19] MEDS: ASCORBIC ACID 500 MG TAB PO SCH (08:55)
[2017-01-19] MEDS: INSULIN DETEMIR 100 UNITS/ML 10 ML VIAL SUBQ SCH (08:57)
[2017-01-19] MEDS: POLYVINYL ALCOHOL 1.4% OP 15 ML SOL OP SCH ×2 (09:00→13:10)
[2017-01-19] MEDS: INSULIN LISPRO SLIDING SCALE 100 UNITS/ML VIAL SUBQ PRN (11:53)
[2017-01-19 12:00] VITALS: BP 99/53
[2017-01-19] MEDS ORDERED: ARTOP OP (12:23)
[2017-01-19] MEDS ORDERED: MULT-1736 PO (12:23)
[2017-01-19] MEDS ORDERED: KEP500 PO (12:28)
[2017-01-19] MEDS ORDERED: ADA60 PO (12:28)
[2017-01-19] MEDS ORDERED: CLOP75TA5 PO (12:28)
[2017-01-19] MEDS ORDERED: LEVEMIR SUBQ (12:31)
--- NOTE | 2017-01-19 13:16 | NUR ---
CALLED PT. GILMER HENRIQUEZ AT AND INFORMED THAT PT. WILL BE D/C TO [facility] [facility] AT ST[facility] 1 ROOM 106-B. ASKED PT. GILMER HENRIQUEZ FOR ANY QUESTION OR CONCERN REGARDING PT. TRANSFER TO [facility]. NO QUESTION OR CONCERN RECEIVED FROM PT. GILMER HENRIQUEZ.
--- NOTE | 2017-01-19 13:37 | NUR ---
CALLED [facility] AND SPOKE TO CHELLE, REPORT GIVEN ABOUT PT. TRANSFER. INFORMED CHARGE NURSE TED PATINO.
--- NOTE | 2017-01-19 15:20 | NUR ---
D/C TO SNF VIA GURNEY WITH ASSISTANCE FROM MEDICAL TRANSPORTER. AWAKE, ALERT, AND ORIENTED X2 WITH CONFUSION, NOTED. NO C/O PAIN. NO SOB, NOTED. IN STABLE CONDITION. INFORMED CHARGE NURSE TED PATINO.
--- NOTE | 2017-01-21 10:18 | NUR ---
SPOKE WITH VERONICA AT [facility] AND DISCUSSED WITH HER THAT DISPATCHER ON 01/19 INFORMED THE NURSE THAT THEY DID NOT TAKE [facility], THEREFORE, TRANSPORT WAS LISTED [facility] BILL. VERONICA SAID THEY DO TAKE [facility] AND AUTHORIZATION NUMBER [id number] WAS PROVIDED AND VERONICA STATED THAT BILLING WOULD BE CHANGED TO [facility] BILL.
== END 2017-01-19 15:20 | DRG 637 ==
LOC: MED 15:36 → MIC 17:48 → MTU 01-16 17:00
PROVIDERS: ADMIT Family Medicine; ATTEND Family Medicine
DX: E11.00 Type 2 diabetes mellitus with hyperosmolarity without nonketotic hyperglycemic-hyperosmolar coma (NKHHC) (principal); K85.90 Acute pancreatitis without necrosis or infection, unspecified; G93.41 Metabolic encephalopathy; N17.0 Acute kidney failure with tubular necrosis; E44.0 Moderate protein-calorie malnutrition; E87.0 Hyperosmolality and hypernatremia; D68.69 Other thrombophilia; F03.90 Unspecified dementia, unspecified severity, without behavioral disturbance, psychotic disturbance, mood disturbance, and anxiety; I12.9 Hypertensive chronic kidney disease with stage 1 through stage 4 chronic kidney disease, or unspecified chronic kidney disease; E11.22 Type 2 diabetes mellitus with diabetic chronic kidney disease; R74.0 Nonspecific elevation of levels of transaminase and lactic acid dehydrogenase [LDH]; E11.51 Type 2 diabetes mellitus with diabetic peripheral angiopathy without gangrene; E11.65 Type 2 diabetes mellitus with hyperglycemia; G47.31 Primary central sleep apnea; D64.9 Anemia, unspecified; E83.39 Other disorders of phosphorus metabolism; E83.41 Hypermagnesemia; E87.5 Hyperkalemia; E78.5 Hyperlipidemia, unspecified; N18.9 Chronic kidney disease, unspecified; Z66 Do not resuscitate; Z79.899 Other long term (current) drug therapy; Z79.84 Long term (current) use of oral hypoglycemic drugs; Z68.20 Body mass index [BMI] 20.0-20.9, adult; Z86.73 Personal history of transient ischemic attack (TIA), and cerebral infarction without residual deficits; Z87.891 Personal history of nicotine dependence; Z87.898 Personal history of other specified conditions
CPT/HCPCS: 36415; 36600; 71010; 76604; 76705; 80048; 80053; 80305; 81001; 82009; 82140; 82150; 82248; 82550; 82553; 82803; 82948; 83036; 83605; 83690; 83735; 83874; 83880; 84100; 84439; 84443; 84484; 85025; 85610; 85730; 86704; 86706; 86708; 86709; 86803; 87040; 87081; 87086; 87340; 92610; 93005; 93925; 93970; 96360; 96361; 99291; C9113; J0360; J0696; J1644; J1815; J1940; J2001; J3480; J7030; J7060; Q0092

== ENCOUNTER 2020-10-01 23:57 | Inpatient (IN) | payer OTHER, MEDICAID ==
[~2020-10-01] VITALS: Ht 167.6 cm; Wt 49.9 kg
[2020-10-01 23:57] VITALS: BP 116/72
[~2020-10-01 23:57] MED LIST changes: +CLOP75TA26 PO; -DONE5TAB2 PO; +DONE5TAB6 PO; -GLIP10TA3 PO; +KEP500 PO; +LEVEMIR SUBQ; -METF500T PO; +MULT-1736 PO; +NIFE-183 PO; +POLY15SO74 OP
--- NOTE | 2020-10-01 23:57 | NUR ---
BIBA C/O PULL OUT CATHETER(DIALYSIS) FROM [facility],2 HOURS AGO, NO BLEEDING NOTED .
--- NOTE | 2020-10-02 | NUR ---
69 y/[address] biba from [facility] due to pulling out subclavian dialysis catheter. bleeding is controlled. no redness or tenderness noted around the area. pmh: see pts chart nka
--- NOTE | 2020-10-02 00:35 | NUR ---
EKG PERFORMED AT BEDSIDE. EKG READS SINUS RHYTHM @ 72
[2020-10-02] MEDS ORDERED: PANT40EC PO (00:39)
[2020-10-02] MEDS ORDERED: AMLO10TA PO (00:39)
[2020-10-02] MEDS ORDERED: HYDR-5122 PO (00:39)
[2020-10-02] MEDS ORDERED: MULT-2253 PO (00:39)
[2020-10-02] MEDS ORDERED: MELA1TAB32 PO (00:39)
[2020-10-02] MEDS ORDERED: FURO-570 PO (00:39)
[2020-10-02] MEDS ORDERED: METO25TA PO (00:39)
[2020-10-02] MEDS ORDERED: ROC.25 PO (00:39)
[2020-10-02] MEDS ORDERED: SEVE800T6 PO (00:39)
[2020-10-02] MEDS ORDERED: ACET-2619 PO (00:39)
[2020-10-02] MEDS ORDERED: LISI10TA11 PO (00:39)
--- NOTE | 2020-10-02 00:40 | NUR ---
ALONSO JIMENEZ AND HANDED TO DIRECTOR ATHLETIC WALT
--- NOTE | 2020-10-02 00:40 | NUR ---
LAB AT BEDSIDE
--- NOTE | 2020-10-02 00:52 | NUR ---
xray at bedside
[2020-10-02 00:53] LABS: BASOPHILS % (AUTO) 0.3 % (0.0-2.0); EOSINOPHILS # (AUTO) 0.4 K/uL (0-0.4); EOSINOPHILS % (AUTO) 4.3 % (0.0-4.0); HEMATOCRIT 24.8 % (36-52); HEMOGLOBIN 8.3 g/dL (12.0-18.0); LYMPHOCYTES # (AUTO) 1.1 K/uL (2.0-11.5); LYMPHOCYTES % (AUTO) 11.2 % (20.5-51.1); MEAN CORPUSCULAR HEMOGLOBIN 32 pg (27-31); MEAN CORPUSCULAR HGB CONC 34 g/dL (33-37); MEAN CORPUSCULAR VOLUME 95.6 fL (80-94); MONOCYTES # (AUTO) 0.9 K/uL (0.8-1.0); MONOCYTES % (AUTO) 9.2 % (1.7-9.3); NEUTROPHILS # (AUTO) 7.4 K/uL (1.8-7.7); PLATELET COUNT (AUTO) 169 K/uL (140-450); RED BLOOD CELL COUNT(AUTO) 2.59 MIL/uL (4.20-6.10); RED CELL DISTRIBUTION WIDTH 15.5 % (11.6-13.7); WHITE BLOOD COUNT (AUTO) 9.9 K/uL (4.8-10.8)
[2020-10-02 01:25] LABS: PROTHROMBIN TIME 9.7 secs (10.8-13.4)
[2020-10-02 01:28] LABS: ANION GAP 6.6 (8-16); CARBON DIOXIDE 33.9 mmol/L (21-32); POTASSIUM 4.5 mmol/L (3.5-5.1)
[2020-10-02 01:31] LABS: CREATININE 4.1 mg/dL (0.6-1.3)
--- NOTE | 2020-10-02 01:58 | NUR ---
PT IS SITTING UPRIGHT IN BED WITH HOB IN SEMI FOWLERS POSITION. PT HAS A 4X4 BANDAGE COVERING THE AREA WHERE THE PT REMOVED HIS RIGHT SUBCLAVIAN DIALYSIS PORT. BLEEDING IS CONTROLLED. PT IS CONNECTED TO THE GUT PULLER. SAO2@98%. BED IS LOCKED AND IN LOWEST POSITION. SIDE RAILSX2. PT IS NOT IN ANY ACUTE DISTRESS AT THIS TIME.
--- NOTE | 2020-10-02 02:55 | NUR ---
PT IS SITTING UPRIGHT WITH HOB IN SEMIFOWLERS POSITION. PT IS NOT IN ANY ACUTE DISTRESS AT THIS TIME. PT IS CONNECTED TO THE INSPECTOR EXPERIMENTAL ASSEMBLY. SAO2@97% ROOM AIR. BED IS LOCKED AND IN LOWEST POSITION. SIDE RAILSX2 FOR PT PROTECTION. WILL CONTINUE TO MONITOR.
--- NOTE | 2020-10-02 03:45 | NUR ---
pt sitting in bed with hob in semi-fowlers. pt is connected to the cardiac catheterization technician. bed is locked and in lowest position. pt is not in any distress at this time. will continue to monitor. side rails x2 for pt protection
[2020-10-02] MEDS ORDERED: ACETAMINOPHEN 325 MG TAB PO PRN (04:10)
[2020-10-02] MEDS ORDERED: DOCUSATE SODIUM 100 MG GELCAP PO PRN (04:10)
[2020-10-02] MEDS ORDERED: MORPHINE SULFATE 2 MG/ML SYR IVP PRN (04:10)
[2020-10-02] MEDS ORDERED: HYDROcodone/APAP 5/325 MG 1 TAB TAB PO PRN (04:10)
[2020-10-02] MEDS ORDERED: ONDANSETRON 4 MG/2 ML VIAL IM/IVP PRN (04:10)
[2020-10-02] MEDS ORDERED: NACL 0.9% 1,000 ML IV SCH (04:10)
[2020-10-02] MEDS ORDERED: MELATONIN 3 MG TAB PO PRN (04:35)
--- NOTE | 2020-10-02 04:50 | NUR ---
pt is sitting with hob in semi-wood's position. pt is connected to the baking factory worker. bed is locked and in lowest position. pt is not in any acute distress at this time. side rails x2. will continue to monitor.
--- NOTE | 2020-10-02 05:11 | NUR ---
wound assessment documented
--- NOTE | 2020-10-02 05:25 | NUR ---
REPORT CALLED TO IRENE ALEMAN FOR TRANSFER OF CARE
--- NOTE | 2020-10-02 05:25 | NUR ---
Note erika in EDM - 10/02/20 at 0619 by [facility] Patient will be admitted to care of DR. MUJICA. Admited to [facility]UR[facility]. Will go to [id number]. Belongings list completed. Report to IRENE ALEMAN.
--- NOTE | 2020-10-02 06:00 | NUR ---
Patient will be admitted to care of DR. MUJICA. Admited to MED-SURG. Will go to [id number]. Belongings list completed. Report to IRENE ALEMAN.
[2020-10-02 06:35] VITALS: BP 170/86
--- NOTE | 2020-10-02 06:35 | NUR ---
RECEIVED PT FROM JAXON / SEBASTIAN . NID , IV SITE INTACT AND PATENT . SAFETY MEASURES IN PLACE , MRSA - TO BE SENT TO LAB . V/S - STABLE . WILL ENDORSED .
--- NOTE | 2020-10-02 07:23 | NUR ---
ENDORSED TO AM SHIFT - STABLE . REMIND HER TO CHECK THE ACCU CHECK . RE CHECK BP . AND REMIND TO DRMagdiel PT HAS POLST - DNR
[2020-10-02 07:30] VITALS: BP 171/70
[2020-10-02] MEDS ORDERED: INSULIN LISPRO SLIDING SCALE 100 UNITS/ML VIAL SUBQ PRN (08:20)
[2020-10-02] MEDS ORDERED: DEXTROSE 50% 50 ML SYR IVP PRN (08:20)
[2020-10-02 08:38] LABS: MAGNESIUM 2.3 mg/dL (1.8-2.4); PHOSPHORUS 4.1 mg/dL (2.5-4.9)
[2020-10-02] MEDS: PANTOPRAZOLE 40 MG INJ VIAL IVP SCH (08:38)
[2020-10-02] MEDS: BLOOD GLUCOSE MONITORING 1 DEV DEV FS SCH ×4 (08:38→20:18)
[2020-10-02] MEDS: NIFEdipine 60 MG TABER PO SCH ×2 (08:38→08:48)
[2020-10-02] MEDS: MULTIVITAMIN/MINERALS 1 TAB PO SCH ×2 (08:39→08:48)
[2020-10-02] MEDS: FUROSEMIDE 40 MG TAB PO SCH ×2 (08:39→08:48)
[2020-10-02] MEDS: FOLIC ACID 1 MG TAB PO SCH ×2 (08:40→08:48)
[2020-10-02] MEDS: levETIRAcetam 500 MG TAB PO SCH ×3 (08:40→21:00)
[2020-10-02] MEDS: DONEPEZIL 10 MG TAB PO SCH ×2 (08:40→08:48)
[2020-10-02] MEDS: METOPROLOL 25 MG TAB PO SCH ×3 (08:40→21:00)
[2020-10-02] MEDS: amLODIPine 5 MG TAB PO SCH ×2 (08:40→08:48)
[2020-10-02] MEDS: lisinopriL 10 MG TAB PO SCH ×2 (08:41→08:48)
[2020-10-02] MEDS: SEVELAMER CARBONATE 800 MG TAB PO SCH ×4 (08:41→17:32)
[2020-10-02] MEDS: THIAMINE 100 MG TAB PO SCH ×2 (08:41→08:48)
[2020-10-02] MEDS: CLOPIDOGREL 75 MG TAB PO SCH (08:42)
[2020-10-02] MEDS: ECOTRIN 81 MG TABEC PO SCH (08:42)
--- NOTE | 2020-10-02 08:48 | NUR ---
PROTONIX GIVEN VIA IVP. PATIENT IS CONFUSED, REFUSED TO TAKE THE ORAL MEDICATION. TRIED TO REORIENTED THE PATIENT. BUT PATIENT KEPT COVERING HIMSELF WITH THE BLANKET. MEDICATIONS BEING WASTED. SAFETY MEASURES IN PLACE, WILL CONTINUE TO MONITOR.
[2020-10-02] MEDS: POLYVINYL ALCOHOL 1.4% OP 15 ML SOL BOTH EYES SCH ×4 (09:00→20:20)
--- NOTE | 2020-10-02 09:49 | NUR ---
REPOSITION THE PATIENT IN RIGHT LATERAL POSITION. PATIENT IS CONFUSED AND NON VERBAL. IV CATHETER WAS NOTICED THAT WAS PULLED OUT BY THE PATIENT. OXIMETER SENSOR MONITOR WAS PULLED OUT WELL. PATIENT REFUSED TO EAT. WILL REPORT TO MD AND CONTINUE TO MONITOR. Addendum: 10/02/20 at 1004 by Deo Lemon RN PATIENT REFUSED THE MEDICATION. NOT FOOD. PATIENT IS NPO EXCEPT MEDS STATUS.
[2020-10-02] MEDS ORDERED: LABETALOL 100 MG/20 ML VIAL IV PRN (10:45)
--- NOTE | 2020-10-02 11:05 | NUR ---
START NEW IV ON THE RIGHT FOREARM 22G, INFUSING WELL WITH IVF. SAFETY MEASURES IN PLACE, CALL LIGHT WITHIN REACH. WILL CONTINUE TO MONITOR.
--- NOTE | 2020-10-02 13:40 | NUR ---
ASSISTED PRACTICE MANAGERS TO CHANGE THE PATIENT, TURNED PATIENT TO LEFT LATERAL POSITION. WET DIAPER CHANGED. RELEASED PATIENT X 15 MINS FROM THE RESTRAINT. SAFETY MEASURES IN PLACE, CALL LIGHT WITHIN REACH. WILL CONTINUE TO MONITOR.
--- NOTE | 2020-10-02 13:53 | NUR ---
CRUSHED THE MEDICATION AND GIVEN WITH WATER. EYE DROPS ADMINISTRATED. NO INJURIES NOTED. NO ACUTE DISTRESS NOTED. WILL CONTINUE TO MONITOR.
--- NOTE | 2020-10-02 14:32 | NUR ---
CHECKED PATIENT. RESTING IN BED ASLEEP, NO ACUTE DISTRESS NOTED. SAFETY MEASURES IN PLACE, BED IN LOW POSITION. WILL CONTINUE TO MONITOR.
[2020-10-02 16:00] VITALS: BP 128/48
[2020-10-02] MEDS ORDERED: DEXT 5% /NACL 0.9% 1,000 ML IV SCH (17:25)
--- NOTE | 2020-10-02 17:32 | NUR ---
CHANGE IVF TO D5 NS PER MD ORDER. SCHEDULED MEDICATION CRUSHED AND GIVEN WITH WATER. SAFETY MEASURES IN PLACE, CALL LIGHT WITHIN REACH. WILL CONTINUE TO MONITOR.
--- NOTE | 2020-10-02 19:30 | NUR ---
ENDORSED PATIENT TO PHOTOGRAPHIC PRESS SCREWMAKER RN FOR CONTINUITY OF CARE. PATIENT IN STABLE CONDITION.
--- NOTE | 2020-10-02 19:31 | NUR ---
RECEIVED REPORT FROM ALON SARGENT RN. PT AOX2 ON ROOM AIR. NO S/S RESPIRATORY DISTRESS. FLACC 0. IV SITE RFA 22G, PATENT AND INTACT, INFUSING IVF ORDERED. HAS DEMIAN SOFT WRIST RESTRAINTS, NO SIGNS OF IMPAIRED CIRCULATION, NO INJURIES. RIGHT FOOT IS WRAPPED IN DRESSING. SAFETY MEASURES IN PLACE. CALL LIGHT WITHIN REACH. WILL CONTINUE TO MONITOR Addendum: 10/03/20 at 0640 by Dwain Stein RN CALL LIGHT NOT WITHIN REACH.
[2020-10-02 20:00] VITALS: BP 125/59
--- NOTE | 2020-10-02 20:20 | NUR ---
ADMINISTERED SCHEDULED EYE DROPS. NO DISTRESS NOTED. WILL CONTINUE TO MONITOR
[2020-10-02] MEDS: INSULIN LANTUS 100 UNITS/ML 10 ML VIAL SUBQ SCH (21:00)
--- NOTE | 2020-10-02 21:30 | NUR ---
OBTAINED TELEPHONE CONSENT FROM PATIENT'S NIECE ZUNILDA VILLAREAL FOR TUNNELED DIALYSIS CATHETER PLACEMENT POSSIBLE DEBRIDEMENT OF RIGHT FOOT WITH SECOND RN VERIFICATION
--- NOTE | 2020-10-02 22:55 | NUR ---
PULLED OUT SCHEDULED MEDS AND CRUSHED THEM. ATTEMPTED TO GIVE TO PT, PT REFUSED. MEDS NOT GIVEN. DISPOSED MEDS IN PHARMACEUTICAL WASTE.
--- NOTE | 2020-10-03 | NUR ---
STILL SLEEPPY - V/S STABLE - AWAKEABLE . WILL CONT. TO MONITOR
--- NOTE | 2020-10-03 01:15 | NUR ---
PT ASLEEP IN BED. RESPIRATIONS EVEN AND UNLABORED. NO DISTRESS NOTED. WILL CONTINUE TO MONITOR
--- NOTE | 2020-10-03 03:35 | NUR ---
PT ASLEEP IN BED. NO DISTRESS NOTED. WILL CONTINUE TO MONITOR
[2020-10-03 04:00] VITALS: BP 142/61
[2020-10-03] MEDS: BLOOD GLUCOSE MONITORING 1 DEV DEV FS SCH ×4 (06:12→21:00)
--- NOTE | 2020-10-03 06:30 | NUR ---
PT BLOOD SUGAR 146. NO INSULIN COVERAGE NEEDED
--- NOTE | 2020-10-03 07:35 | NUR ---
ENDORSED PT TO DAY RN FOR CONTINUITY OF CARE. PT IS IN STABLE CONDITION
[2020-10-03 08:00] VITALS: BP 124/58
[2020-10-03] MEDS: POLYVINYL ALCOHOL 1.4% OP 15 ML SOL BOTH EYES SCH ×4 (08:22→21:00)
--- NOTE | 2020-10-03 08:22 | NUR ---
HEPARIN GIVEN VIA SUBQ, CONFIRMED WITH DR. CLAY ACEVEDO THAT OK TO GIVE HEPARIN PRIOR THE SURGERY TODAY. PROTONIX GIVEN VIA IVP, ARTIFICIAL TEARS ADMINISTERED. ALL OTHER PO MEDS HOLD DUE TO NPO STATUS FOR PERMACATH PLACEMENT TODAY. PATIENT KEPT COMFORTABLE. IV INFUSING PER ORDER. WILL CONTINUE TO MONITOR.
[2020-10-03] MEDS: PANTOPRAZOLE 40 MG INJ VIAL IVP SCH (08:23)
[2020-10-03 08:31] LABS: BASOPHILS % (AUTO) 0.5 % (0.0-2.0); EOSINOPHILS # (AUTO) 0.2 K/uL (0-0.4); HEMATOCRIT 24.1 % (36-52); HEMOGLOBIN 8.2 g/dL (12.0-18.0); LYMPHOCYTES # (AUTO) 0.7 K/uL (2.0-11.5); LYMPHOCYTES % (AUTO) 11.8 % (20.5-51.1); MEAN CORPUSCULAR HEMOGLOBIN 33 pg (27-31); MEAN CORPUSCULAR HGB CONC 34 g/dL (33-37); MEAN CORPUSCULAR VOLUME 95.5 fL (80-94); MONOCYTES # (AUTO) 0.4 K/uL (0.8-1.0); MONOCYTES % (AUTO) 7.5 % (1.7-9.3); NEUTROPHILS # (AUTO) 4.6 K/uL (1.8-7.7); NEUTROPHILS % (AUTO) 77.2 % (42.2-75.2); PLATELET COUNT (AUTO) 163 K/uL (140-450); RED BLOOD CELL COUNT(AUTO) 2.52 MIL/uL (4.20-6.10); RED CELL DISTRIBUTION WIDTH 15.3 % (11.6-13.7); WHITE BLOOD COUNT (AUTO) 5.9 K/uL (4.8-10.8)
[2020-10-03] MEDS: ECOTRIN 81 MG TABEC PO SCH (08:32)
[2020-10-03] MEDS: FUROSEMIDE 40 MG TAB PO SCH (08:32)
[2020-10-03] MEDS: FOLIC ACID 1 MG TAB PO SCH (08:32)
[2020-10-03] MEDS: DONEPEZIL 10 MG TAB PO SCH (08:32)
[2020-10-03] MEDS: levETIRAcetam 500 MG TAB PO SCH ×2 (08:32→21:00)
[2020-10-03] MEDS: METOPROLOL 25 MG TAB PO SCH ×2 (08:32→21:00)
[2020-10-03] MEDS: CLOPIDOGREL 75 MG TAB PO SCH (08:33)
[2020-10-03] MEDS: SEVELAMER CARBONATE 800 MG TAB PO SCH ×3 (08:33→17:00)
[2020-10-03] MEDS: THIAMINE 100 MG TAB PO SCH (08:33)
[2020-10-03] MEDS: lisinopriL 10 MG TAB PO SCH (08:33)
[2020-10-03] MEDS: MULTIVITAMIN/MINERALS 1 TAB PO SCH (08:33)
[2020-10-03 08:40] LABS: PROTHROMBIN TIME 9.7 secs (10.8-13.4)
[2020-10-03 08:50] LABS: ALBUMIN 3.1 g/dL (3.4-5.0); ANION GAP 8.8 (8-16); CARBON DIOXIDE 31.1 mmol/L (21-32); POTASSIUM 4.9 mmol/L (3.5-5.1); TOTAL BILIRUBIN 0.2 mg/dL (0.0-1.0)
--- NOTE | 2020-10-03 08:55 | NUR ---
PATIENT HAS BEEN SCREENED AND CATEGORIZED HIGH NUTRITION RISK. PATIENT WILL BE SEEN WITHIN 1-2 DAYS OF ADMISSION. 10/03/[address]
[2020-10-03] MEDS ORDERED: NIFEdipine 60 MG TABER PO SCH (09:00)
[2020-10-03 09:44] LABS: CREATININE 5.4 mg/dL (0.6-1.3)
--- NOTE | 2020-10-03 09:53 | NUR ---
PATIENT WAS TRANSFERRED TO THE OR TO HAVE THE DIALYSIS CATHETER PLACEMENT. WILL FOLLOW UP.
[2020-10-03] MEDS ORDERED: BUPIVACAINE-MPF 0.25% 30 ML VIAL INJ ONE ×3 (09:57→14:23)
[2020-10-03] MEDS ORDERED: LIDOCAINE 1% 500 MG/50 ML VIAL ONE ×2 (09:57→14:23)
--- NOTE | 2020-10-03 10:41 | NUR ---
*ST: NOTES* Order received, chart reviewed. Per Deo BONILLA, Pt NPO, in OR for permacath placement and possible continued NPO for possible debridement later today. Per RN, Pt's niece reported Pt received Puree[facility]Thin Liquids diet at [facility] prior to admit. RN had Pt yesterday in which the Pt would spit out meds crushed and mixed with apple sauce but noted to take medications with water by tsp without overt coughing nor throat clearing. RN noted Pt edentulous with no dentures at bedside. LOAN ANALYST to f/u when cleared for PO trials. -Francine Mora MA, CCC-LOAN ANALYST
--- NOTE | 2020-10-03 11:00 | NUR ---
PATIENT WAS BROUGHT BACK FROM OR BUT NO PROCEDURE BEEN PERFORMED, RESCHEDULED AT 1300. PATIENT IN STABLE CONDITION. NO ACUTE DISTRESS NOTED. WILL CONTINUE TO MONITOR.
--- NOTE | 2020-10-03 11:05 | NUR ---
POC DISCUSSED WITH PRIMARY RN, PENDING WOUND CONSULT TO RIGHT FOOT. PT. POSSIBLE WILL HAVE DEBRIDEMENT THIS AFTERNOON. OFFLOADING BILATERAL FEET.
--- NOTE | 2020-10-03 11:27 | NUR ---
BLOOD GLUCOSE CHECKED 117MG/DL, NO INSULIN COVERAGE NEEDED. TURNED THE PATIENT, SAFETY MEASURES IN PLACE, WILL CONTINUE TO MONITOR.
--- NOTE | 2020-10-03 11:59 | NUR ---
SOCIAL WORK NOTE: Patient's Orientation Unable To Assess Information Provided By ZUNILDA SCHERER Comments SW WAS UNABLE TO MEET PATIENT AT BEDSIDE DUE TO MEDICAL CONDITION. SW COMPLETED ASSESSMENT WITH NIJAIR WHO STATED THAT SHE IS ONLY FAMILY FOR PATIENT. E Commerce Retailer, Realtionship and Phone Number ZUNILDA SCHERER/[facility] [phone] Healthcare Power of Construction Lineman No Does Patient Have a POLST Yes Identifying Problems No Social Work Triggers Is A Social Work Consult Needed No Mandate Report Filed No Explanation Of Identifying Problems PATIENT IS A 69-YEAR-OLD MALE ADMITTED FOR PERMACATH PLACEMENT. PATIENT HAS PMHX OF ESRD ON HEMODIALYSIS /SAT/SAT, CEBREBROVASCULAR ACCIDE, DIABETES, DEMENTIA, AND HYPERTENSION. Admitted From Long-Term Care/[facility] Senior Living Facility [facility] - [phone] Pre-Admission Level Of Functioning Status Total Care Level Of Functioning Comment NIJAIR STATED THAT PATIENT REQUIRES TOTAL ASSISTANCE WITH ALL ADLS. Prior Resources/Services Used In Last 12 Months SNF Long-Term Care Prior Resources/Service Comments PATIENT IS PENITENTIARY AND ON A BED HOLD. Prior DME Hospital Bed Wheelchair Dialysis Hemodialysis Name And Phone Number of Dialysis Facility UNKNOWN TO [facility] ESRD Outpatient Days Sat Patient Had Caregiver No Home Support No Caregiver Issues Financial Issues No Known Financial Issue Referral To The Financial Counselor Needed No Factors/Needs SNF/NH Placement Explanation And Or Other Factors Affecting/Possible DC Needs [facility] WAS AGREEABLE TO PATIENT RETURNING TO [facility]. Pt/Rep Participated In Discharge Plan Yes Patient/Family Agress With Discharge Plan Yes Discharge Plan Comments TENTATIVE DISCHARGE PLAN IS FOR PATIENT TO RETURN TO [facility]. DC Plan Status Initiated
[2020-10-03] MEDS ORDERED: ceFAZolin 1,000 MG VIAL ONE (14:49)
--- NOTE | 2020-10-03 15:36 | NUR ---
10/03/20 RD INITIAL ASSESSMENT COMPLETED PLEASE REFER TO NUTRITION ASSESSMENT UNDER CARE ACTIVITY FOR ESTIMATED NUTRITIONAL NEEDS. 1. CONTINUE NPO MEDICALLY NECESSARY 2. CONSIDER TO ADVANCE DIET TO PUREE CCHO 60GM WITH GLUCERNA TID 3. PROVIDE VITAMIN C 500 MG DAILY FOR WOUND HEALING 4. RD TO FOLLOW-UP 2-3 DAYS, HIGH RISK YEVGENIY SHEIKH, RD
--- NOTE | 2020-10-03 15:55 | NUR ---
SPOKE WITH DR. ACEVEDO, OPERATION WILL BE PERFORM BY DR. CASTELLANOS LATER TODAY. INFORMED DR. ROONEY. WILL FOLLOW UP.
[2020-10-03 16:00] VITALS: BP 178/82
--- NOTE | 2020-10-03 16:25 | NUR ---
PATIENT'S WOUND DRESSING GOT LOOSE. REINFORCED WITH MAIA DRESSING. NO DRAINAGE. NO ACUTE DISTRESS NOTED. SAFETY MEASURES IN PLACE, WILL CONTINUE TO MONITOR.
[2020-10-03] MEDS ORDERED: hydrALAZINE 20 MG/ML VIAL IVP PRN (16:35)
--- NOTE | 2020-10-03 16:48 | NUR ---
ACCUCHECK. BS LEVEL 105, NO INSULIN COVERAGE NEEDED AT THIS TIME. IV INFUSING ORDERED. WILL CONTINUE TO MONITOR.
--- NOTE | 2020-10-03 17:33 | NUR ---
HYDRALAZINE GIVEN VIA IVP FOR BP 178/82. PATIENT KEPT COMFORTABLE. SAFETY MEASURES IN PLACE. WILL CONTINUE TO MONITOR.
[2020-10-03] MEDS ORDERED: MIDAZOLAM 2 MG/2 ML VIAL ONE (18:00)
[2020-10-03] MEDS ORDERED: fentaNYL citrate 0.05 MG/ML VIAL ONE (18:00)
--- NOTE | 2020-10-03 18:02 | NUR ---
OR NURSE CAME TO TRANSFER PATIENT TO OR FOR PERMACATH PLACEMENT AND POSSIBLE DEBRIDEMENT OF RIGHT FOOT. INFORMED OR NURSE THAT PATIENT'S BP WAS HIGH AND HYDRALAZINE WAS GIVEN 1732. WILL CONTINUE TO FOLLOW UP.
[2020-10-03] MEDS ORDERED: BLOOD GLUCOSE MONITORING 1 DEV DEV FS SCH (18:35)
[2020-10-03] MEDS ORDERED: ONDANSETRON 4 MG/2 ML VIAL IVP PRN (18:35)
[2020-10-03] MEDS: NACL 0.9% 1,000 ML IV SCH (18:35)
--- NOTE | 2020-10-03 19:10 | NUR ---
PATIENT STILL NOT BACK TO THE FLOOR FROM OR. ENDORSED TO FELT MACHINE MECHANIC RN FOR CONTINUITY OF CARE.
--- NOTE | 2020-10-03 19:35 | NUR ---
RECEIVED PT FROM OR POST DEBRIBEMENT OF R FOOT - WRAPPED AROUND W/ BANDAGE - DRY AND INTACT . PT STILL SLEEPY BUT AWAKEABLE BY SHAKING . O2 SAT WNL . IV SITE INTACT AND PATENT . SAFETY MEASURES IN PLACE . WILL CONT. TO MONITOR .
[2020-10-03 20:00] VITALS: BP 142/73
[2020-10-03] MEDS: INSULIN LANTUS 100 UNITS/ML 10 ML VIAL SUBQ SCH (21:00)
--- NOTE | 2020-10-04 | NUR ---
O2 SAT WNL . SLEEPPY - AWAKEABLE BY SHAKING . WILL CONT. TO MONITOR
[2020-10-04 04:00] VITALS: BP 122/80
--- NOTE | 2020-10-04 04:00 | NUR ---
MADE ROUNDS , NO S/SX OF ACUTE DISTRSS NOTED
[2020-10-04] MEDS: BLOOD GLUCOSE MONITORING 1 DEV DEV FS SCH ×4 (05:39→19:24)
--- NOTE | 2020-10-04 06:00 | NUR ---
AWAKE , NO S/SX OF ACUTE DISTRESS NOTED
--- NOTE | 2020-10-04 07:35 | NUR ---
ENDROSED - PT - STABLE
[2020-10-04 08:00] VITALS: BP 143/82
--- NOTE | 2020-10-04 08:00 | NUR ---
RECEIVED REPORT FROM CORPORATE ASSOCIATE FOR CONTINUITY OF CARE. INITIAL ASSESSMENT INITIATED. PATIENT AWAKE, CONFUSED. ON BILATERAL WRIST RESTRAINT. WITH IVF ON GOING AND INFUSING WELL. FOR CATHETER PLACEMENT TODAY. WILL CONTINUE TO MONITOR.
[2020-10-04 08:11] LABS: BASOPHILS % (AUTO) 0.3 % (0.0-2.0); EOSINOPHILS # (AUTO) 0.1 K/uL (0-0.4); HEMATOCRIT 25.8 % (36-52); HEMOGLOBIN 8.5 g/dL (12.0-18.0); LYMPHOCYTES # (AUTO) 0.6 K/uL (2.0-11.5); LYMPHOCYTES % (AUTO) 7.8 % (20.5-51.1); MEAN CORPUSCULAR HEMOGLOBIN 32 pg (27-31); MEAN CORPUSCULAR HGB CONC 33 g/dL (33-37); MEAN CORPUSCULAR VOLUME 96.3 fL (80-94); MONOCYTES # (AUTO) 0.6 K/uL (0.8-1.0); MONOCYTES % (AUTO) 7.7 % (1.7-9.3); NEUTROPHILS # (AUTO) 6.3 K/uL (1.8-7.7); NEUTROPHILS % (AUTO) 83.2 % (42.2-75.2); PLATELET COUNT (AUTO) 204 K/uL (140-450); RED BLOOD CELL COUNT(AUTO) 2.68 MIL/uL (4.20-6.10); RED CELL DISTRIBUTION WIDTH 15.4 % (11.6-13.7)
[2020-10-04 08:24] LABS: WHITE BLOOD COUNT (AUTO) 7.8 K/uL (4.8-10.8)
[2020-10-04 08:27] LABS: ANION GAP 16.2 (8-16); CARBON DIOXIDE 25.3 mmol/L (21-32); POTASSIUM 5.5 mmol/L (3.5-5.1)
[2020-10-04] MEDS: NACL 0.9% 1,000 ML IV SCH ×2 (08:53→23:04)
[2020-10-04] MEDS: levETIRAcetam 500 MG TAB PO SCH ×2 (09:00→22:13)
[2020-10-04] MEDS: SEVELAMER CARBONATE 800 MG TAB PO SCH ×3 (09:00→19:16)
[2020-10-04] MEDS: DONEPEZIL 10 MG TAB PO SCH (09:00)
[2020-10-04] MEDS: lisinopriL 10 MG TAB PO SCH (09:00)
[2020-10-04] MEDS: ECOTRIN 81 MG TABEC PO SCH (09:00)
[2020-10-04] MEDS: PANTOPRAZOLE 40 MG INJ VIAL IVP SCH (09:00)
[2020-10-04] MEDS: FUROSEMIDE 40 MG TAB PO SCH (09:00)
[2020-10-04] MEDS: POLYVINYL ALCOHOL 1.4% OP 15 ML SOL BOTH EYES SCH ×4 (09:00→23:03)
[2020-10-04] MEDS: FOLIC ACID 1 MG TAB PO SCH (09:00)
[2020-10-04] MEDS: THIAMINE 100 MG TAB PO SCH (09:00)
[2020-10-04] MEDS: METOPROLOL 25 MG TAB PO SCH ×2 (09:00→22:13)
[2020-10-04] MEDS: MULTIVITAMIN/MINERALS 1 TAB PO SCH (09:00)
--- NOTE | 2020-10-04 10:30 | NUR ---
DR. ACEVEDO CAME AND PUT YUNIOR CATHETER ON THE RIGHT FEMORAL AREA ASSISTED BY ME. PATIENT NOT IN ANY DISTRESS DURING THE PROCEDURE. WILL CONTINUE TO MONITOR.
--- NOTE | 2020-10-04 13:30 | NUR ---
DR. SANON ORDER DIALYSIS, NOTIFIED DIALYSIS NURSE. WILL CONTINUE TO MONITOR.
--- NOTE | 2020-10-04 13:59 | NUR ---
DC PLANNIN YRS OLD MALE PATIENT WAS ADMITTED FROM [facility] WITH A DX OF PERMA CATH PLACEMENT. PT HAS A HX OF HTN DM DEMENTIA ,MULTIPLE CVA ESRD ON HEMODIALYSES. CONSULTED WITH DR ACEVEDO FOR CATHETER PLACEMENT AND POSSIBLE DEBRIDEMENT. RAPID COVID TEST IS NEGATIVE. DR CASTELLANOS PERFORMED I&D OF RIGHT FIRST TOE AMPUTATION. DC PLAN AWAITING FOR THE SURGEON TO REPLACE THE HD CATH. DC PLAN TO GO BACK TO [facility] WHEN STABLE CM TO FOLLOW Addendum: 10/05/20 at 1207 by Vidhi Lyons CM DC DRY KILN LOADER: RECEIVED DC ORDER. FAXED ORDER TO [facility], SPOKE TO JONG IN ADMISSIONS PATIENT CAN RETURN TO ROOM 207-A UND[address] DR[address] ORO. Addendum: 10/05/20 at 1217 by Vidhi Lyons CM DC DRY KILN LOADER: SPOKE TO NICK WITH [employer] [facility] [phone]. HE IS WORKING ON SETTING UP TRANSPORTATION FOR PATIENT. HE WILL CONTACT ME BACK WITH RESERVATION # [id number] Addendum: 10/05/20 at 1329 by Vidhi Lyons CM [facility] CESAR: FOLLOWED UP WITH TRANSPORTATION SERVICES. TRANSPORTATION HAS BEEN SET UP WITH [facility] [phone] FOR 3:30 PM. NOTIFIED IRENE VILLEDA. ALSO CONTACTED PATIENTS [facility] MAURO [phone] TO DISCUSS DC. Addendum: 10/05/20 at 1330 by Vidhi Lyons CM [facility]ES[facility]: [address] ORO Addendum: 10/05/20 at 1332 by Vidhi Lyons CM DC ARSENIO: NOTIFIED JONG AT [address] Addendum: 10/05/20 at 1417 by Vidhi Lyons CM EH CESAR: TRANSPORTATION HAS BEEN CHANGED TO 6:30 PM. NOTIFHANNAH VILLEDA Addendum: 10/05/20 at 1420 by Vidhi Lyons CM EH DRY KILN LOADER: NOTIFIED JONG AT [facility] OF TRANSPORTATION TIME CHANGE.
[2020-10-04 16:00] VITALS: BP 128/74
--- NOTE | 2020-10-04 18:45 | NUR ---
DIALYSIS STARTED.PATIENT RESTING.
--- NOTE | 2020-10-04 19:18 | NUR ---
* ST NOTES * Clinician attempting to complete swallow eval at this time, but pt currently receiving HD. HD Nurse reporting pt may not eat/undergo swallow evaluation at this time, w/Charge Nurse (Cyndie) reporting pt is currently on a puree texture diet and is stable. Clinician verbalizing understanding and informing Charge Nurse (Cyndie) PATIENT SERVICES ASSISTANT will follow up next day to re-attempt swallow eval once again pending pt's medical clearance, appropriateness, and triage policy, w/Charge Nurse verbalizing understanding and agreement.
--- NOTE | 2020-10-04 19:30 | NUR ---
REPORT GIVEN TO RAIL CAR OPERATOR AT BEDSIDE FOR CONTINUITY OF CARE.
--- NOTE | 2020-10-04 19:31 | NUR ---
RECD. RESTING IN BED, AWAKE, A/OX1. ANSWERS QUESTIONS BY SHAKING/NODDING HEAD.RESPIRATION EVEN AND UNLABORED. IV NS AT 40 ML/HR INFUSING, LEFT HAND G22. DIALYSIS ON GOING, RIGHT FEMORAL YUNIOR CATH. SAFETY MEASURES ENFORCED. BED IN THE LOWEST POSITION. ON BILATERAL SOFT WRIST RESTRAINTS. WILL CONTINUE TO MONITOR FOR SAFETY. DENIES PAIN 0/10.
[2020-10-04 20:00] VITALS: BP 135/73
[2020-10-04] MEDS: INSULIN LANTUS 100 UNITS/ML 10 ML VIAL SUBQ SCH (21:00)
--- NOTE | 2020-10-04 21:00 | NUR ---
DIALYSIS STILL ON-GOING. WILL GIVE DUE PO MEDICATIONS AFTER DIALYSIS.
--- NOTE | 2020-10-04 21:30 | NUR ---
DIALYSIS FINISHED, 2 LITERS FLUID TAKEN OUT.
[2020-10-04] MEDS ORDERED: ceFAZolin 1,000 MG VIAL ONE (23:39)
--- NOTE | 2020-10-05 | NUR ---
REPOSITION IN BED WITH PILLOWS FOR COMFORT.
--- NOTE | 2020-10-05 02:00 | NUR ---
TRYING TO TURNED ON THE SIDES, REPOSITIONED IN BED SUPINE. HOB ELEVATED 30 DEGREES.
[2020-10-05 04:00] VITALS: BP 132/76
--- NOTE | 2020-10-05 04:00 | NUR ---
LYING ON HIS RIGHT SIDE, ASLEEP. SAFETY MAINTAINED.
--- NOTE | 2020-10-05 06:30 | NUR ---
AWAKE IN BED, APPLE JUICE GIVEN. TOLERATED WELL.
--- NOTE | 2020-10-05 07:20 | NUR ---
AWAKE IN BED, CALM AND RELAX. NO APPEARANCE OF DISCOMFORT. ENDORSED TO AM SHIFT NURSE FOR CONTINUITY OF CARE.
[2020-10-05] MEDS: BLOOD GLUCOSE MONITORING 1 DEV DEV FS SCH ×3 (07:46→16:30)
[2020-10-05 08:00] VITALS: BP 130/79
[2020-10-05 08:30] LABS: BASOPHILS % (AUTO) 0.3 % (0.0-2.0); EOSINOPHILS # (AUTO) 0.2 K/uL (0-0.4); EOSINOPHILS % (AUTO) 1.9 % (0.0-4.0); HEMOGLOBIN 8.5 g/dL (12.0-18.0); LYMPHOCYTES # (AUTO) 1.2 K/uL (2.0-11.5); LYMPHOCYTES % (AUTO) 13.9 % (20.5-51.1); MEAN CORPUSCULAR HEMOGLOBIN 32 pg (27-31); MEAN CORPUSCULAR HGB CONC 34 g/dL (33-37); MEAN CORPUSCULAR VOLUME 95.3 fL (80-94); MONOCYTES # (AUTO) 0.8 K/uL (0.8-1.0); MONOCYTES % (AUTO) 9.5 % (1.7-9.3); NEUTROPHILS # (AUTO) 6.3 K/uL (1.8-7.7); NEUTROPHILS % (AUTO) 74.4 % (42.2-75.2); PLATELET COUNT (AUTO) 199 K/uL (140-450); RED BLOOD CELL COUNT(AUTO) 2.63 MIL/uL (4.20-6.10); RED CELL DISTRIBUTION WIDTH 15.2 % (11.6-13.7); WHITE BLOOD COUNT (AUTO) 8.5 K/uL (4.8-10.8)
[2020-10-05 08:48] LABS: ANION GAP 13.3 (8-16); CARBON DIOXIDE 28.5 mmol/L (21-32); CREATININE 3.5 mg/dL (0.6-1.3); POTASSIUM 3.8 mmol/L (3.5-5.1)
[2020-10-05] MEDS: POLYVINYL ALCOHOL 1.4% OP 15 ML SOL BOTH EYES SCH ×3 (09:00→18:05)
[2020-10-05] MEDS: PANTOPRAZOLE 40 MG INJ VIAL IVP SCH (09:00)
--- NOTE | 2020-10-05 09:05 | NUR ---
WOUND CARE EVALUATION NOTE: S/P DEBRIDEMENT SURGICAL WOUNDS RIGHT FOOT , DRESSING CHANGE AND PT. TOLERATE PROCEDURES WELL, POC DISCUSSED WITH PRIMARY RN. -RIGHT MEDIAL FOOT S/P I&D TO AMPUTATION WOUND,[id number], WOUND BED 20%YELLOW.SOFT TISSUE, AND 80 % PINK/PALE RED TISSUE, TUNNEL TO3 O'CLOCK DIRECTION, 1CM DEEP, SMALL AMOUNT SEROSANGUINEOUS DRAINAGE, NO ODOR, TED-WOUND SKIN DRY, WOUND EDGE SLIGHTLY BROWN DRY NECROTIC TISSUE. -RIGHT LATERAL FOOT 3X2X0.2CM WOUND BED 100% PURPLE/ BROWN COLOR, MOIST, NO ODOR, TED WOUND SKIN DRY AND INTACT. RECOMMENDATIONS: -CLEANSE RIGHT FOOT MEDIAL AND LATERAL SURGICAL WOUNDS WITH NS AND GAUZE, PAT DRY, APPLY THERAHONEY GEL COVER WITH ADAPTIC/OIL EMULSION DRESSING AND ABD PAD, WRAP WITH JONATHAN Q DAY AND PRN WITH SOILING/DISPLACEMENT. -OFFLOADING RIGHT HEEL WITH PILLOWS -SNF TO CONTINUE WOUND CARE
[2020-10-05] MEDS ORDERED: [UNRECOGNIZED DRUG - OTHER] IV (10:42)
--- NOTE | 2020-10-05 11:19 | NUR ---
BISHNU SERRATO SPEECH THERAPIST CAME TO SEE PT WHO IS CURRENTLY DIALYSING, WILL LOOK AT SCHEDULE AND NOTIFY ME WHEN SHE CAN RETURN FOR EVAL/CONSULT.
--- NOTE | 2020-10-05 11:45 | NUR ---
*ST: NOTES* Third attempt for bedside swallow evaluation; however, Pt receiving HD at this time. Per HD RN, Pt cannot be in a seated position 2/2 R femoral vein lisa catheter and this site must be used for the next 2 hrs (however long the HD duration lasts). Pt did greet EMPLOYEE TRAINING SPECIALIST in soft but clear vocal quality and noted to be edentulous. Pt on room air and on bilat soft wrist restraints. No dentures available at bedside. Per chart, EMPLOYEE TRAINING SPECIALIST suspects bedside swallow evaluation ordered while Pt was in ER 2/2 refusing to take PO meds, raising his blanket to cover his mouth. However, per notes, Pt would take PO meds crushed and mixed with water. Recent CXR 08/04 (-) acute. Pt presently receiving Puree/Thin Liquids diet texture with 1:1 feeding assistance with the nsg staff. Per MANNEQUIN REFINISHER, Aubree, Pt ate 100% breakfast yesterday and 75% lunch without significant difficulty, suspect coughing 2/2 impulsivity when drinking thin by straw. MANNEQUIN REFINISHER reported Pt would not eat this morning. Noted that Pt's PLOF was Puree/Vaiden Thick Liquids consistency at SNF prior to admit. Rec nsg to continue monitoring Pt's PO intake. Rec downgrade to Puree/Vaiden Thick Liquids consistency if needed should Pt demonstrate coughing or throat clearing during PO intake (particularly with thin liquids), respiratory distress, congestion, hypoxia, low grade fever. EMPLOYEE TRAINING SPECIALIST to f/u when Pt cleared for PO trials and if time permits. -Francine Mora MA, CCC-EMPLOYEE TRAINING SPECIALIST
[2020-10-05] MEDS: SEVELAMER CARBONATE 800 MG TAB PO SCH ×3 (13:00→17:00)
[2020-10-05] MEDS ORDERED: THERAHONEY GEL 42.5 GM TP SCH (13:00)
--- NOTE | 2020-10-05 13:39 | NUR ---
HEPARIN 5K UNITS GIVEN TO VENESSA HD RN, FOR DIALYSIS PORTS X2 UNDER Joselito SANON
[2020-10-05] MEDS ORDERED: CRUSHER, PILL MC ONE (13:50)
[2020-10-05] MEDS: MULTIVITAMIN/MINERALS 1 TAB PO SCH (13:52)
[2020-10-05] MEDS: FUROSEMIDE 40 MG TAB PO SCH (13:53)
[2020-10-05] MEDS: METOPROLOL 25 MG TAB PO SCH (13:53)
[2020-10-05] MEDS: FOLIC ACID 1 MG TAB PO SCH (13:53)
[2020-10-05] MEDS: levETIRAcetam 500 MG TAB PO SCH (13:53)
[2020-10-05] MEDS: lisinopriL 10 MG TAB PO SCH (13:54)
[2020-10-05] MEDS: DONEPEZIL 10 MG TAB PO SCH (13:54)
[2020-10-05] MEDS: THIAMINE 100 MG TAB PO SCH (13:55)
[2020-10-05] MEDS: ECOTRIN 81 MG TABEC PO SCH (13:57)
[2020-10-05 16:00] VITALS: BP 159/74
--- NOTE | 2020-10-05 16:30 | NUR ---
PT H/O DEMENTIA, REFUSED TO ALLOW GLUCOSE CHECK. FISTED HANDS AND CONTINUED TO SQUEEZE FISTS
[2020-10-05 18:15] VITALS: BP 159/74
--- NOTE | 2020-10-05 19:27 | NUR ---
ENDORSED PT TO TRANSPLANT WORKER NURSE, PT STABLE. BED LOWEST POSITION, LOCKED.
--- NOTE | 2020-10-05 19:28 | NUR ---
RECD. RESTING IN BED, AWAKE, ALERT, OX1. RESPIRATION EVEN AND UNLABORED. IV OF NS AT 40 ML/HR INFUSING. RIGHT FEMORAL PERMA CATH INTACT. RIGHT FOOT INCISION COVERED WITH DRESSING DRY AND INTACT. FOR TRANSFER BACK TODAY TO SNF, [facility]. DISCHARGE PAPERS PREPARED BY AM NURSE. ADDITIONAL DISCHARGE INSTRUCTIONS GIVEN TO PATIENT, NEEDS REINFORCEMENT. NO APPEARANCE OF PAIN NOTED 0/10.
--- NOTE | 2020-10-05 19:50 | NUR ---
CLEANSED PATIENT AND MADE READY FOR TRANSFER. [facility] CAME TO TAKE PATIENT. REPORT GIVEN. DISCONTINUED IV.
--- NOTE | 2020-10-05 20:15 | NUR ---
TAKEN TO HOSPITAL LOBBY PARKING IN STABLE CONDITION VIA GURNEY ACCOMPANIED BY AMBULANCE PERSONNEL FOR TRANSFER TO [facility].
--- NOTE | 2020-10-05 20:45 | NUR ---
NURSE FAYE FROM [facility] CALLED TO ASK FOR REPORT ON PATIENT. NEEDED INFORMATION GIVEN.
== END 2020-10-05 20:15 | DRG 673 ==
LOC: MED 23:57 → MTU 10-02 04:09
PROVIDERS: ADMIT Hospitalist; ATTEND Hospitalist
PROC: 0JBQ0ZZ Excision of Right Foot Subcutaneous Tissue and Fascia, Open Approach (ICD-10-PCS; 2020-10-03)
PROC: 0JBQ0ZZ Excision of Right Foot Subcutaneous Tissue and Fascia, Open Approach (ICD-10-PCS; principal; 2020-10-03 14:20)
PROC: 5A1D70Z Performance of Urinary Filtration, Intermittent, Less than 6 Hours Per Day (ICD-10-PCS; 2020-10-04)
PROC: 06HY33Z Insertion of Infusion Device into Lower Vein, Percutaneous Approach (ICD-10-PCS; 2020-10-04)
PROC: B54CZZA Ultrasonography of Left Lower Extremity Veins, Guidance (ICD-10-PCS; 2020-10-04)
PROC: 5A1D70Z Performance of Urinary Filtration, Intermittent, Less than 6 Hours Per Day (ICD-10-PCS; 2020-10-05)
DX: T82.42XA Displacement of vascular dialysis catheter, initial encounter (principal); N17.0 Acute kidney failure with tubular necrosis; N18.6 End stage renal disease; M72.6 Necrotizing fasciitis; I12.0 Hypertensive chronic kidney disease with stage 5 chronic kidney disease or end stage renal disease; L97.518 Non-pressure chronic ulcer of other part of right foot with other specified severity; E11.52 Type 2 diabetes mellitus with diabetic peripheral angiopathy with gangrene; I96 Gangrene, not elsewhere classified; Z66 Do not resuscitate; E11.22 Type 2 diabetes mellitus with diabetic chronic kidney disease; Z99.2 Dependence on renal dialysis; Z20.828 Contact with and (suspected) exposure to other viral communicable diseases; F03.90 Unspecified dementia, unspecified severity, without behavioral disturbance, psychotic disturbance, mood disturbance, and anxiety; E11.621 Type 2 diabetes mellitus with foot ulcer; T87.53 Necrosis of amputation stump, right lower extremity; Y83.5 Amputation of limb(s) as the cause of abnormal reaction of the patient, or of later complication, without mention of misadventure at the time of the procedure; D63.1 Anemia in chronic kidney disease; Y83.8 Other surgical procedures as the cause of abnormal reaction of the patient, or of later complication, without mention of misadventure at the time of the procedure; Z79.899 Other long term (current) drug therapy; Z86.73 Personal history of transient ischemic attack (TIA), and cerebral infarction without residual deficits; Z89.431 Acquired absence of right foot; Z87.891 Personal history of nicotine dependence; Y92.89 Other specified places as the place of occurrence of the external cause
CPT/HCPCS: 36415; 71045; 80048; 80053; 82948; 83036; 83735; 84100; 85025; 85610; 85730; 87081; 88304; 93005; 93925; 99285; C9113; J0360; J0690; J1644; J1815; J2001; J2250; J3010; J3490; J7060